=== PATIENT | female | born 1985 | race Caucasian/White ===

== ENCOUNTER 2018-08-24 00:02 | Inpatient (IN) ==
--- NOTE | 2018-08-24 00:28 | Emergency Department Note ---
Disposition Clinical Impression: Acute psychosis Disposition: Still a Patient Condition: Good Referrals: NONE,PCP [Primary Care Provider] - Forms: ED Satisfaction Letter Psych HPI - General Chief Complaint: ED Psychiatric Symptoms Stated Complaint: psych Time Seen by Provider: 08/24/18 00:09 Source: patient, EMS Mode of arrival: EMS Limitations: no limitations Nursing Notes Reviewed: Yes Vital Signs Reviewed: Yes - History of Present Illness HPI Narrative: 33-year-old female has the emergency department complaining of having psychotic thoughts. Patient does have history of schizophrenia. She says she does not take medications as be from [facility] helps her. 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 She does have chronic back pain otherwise has no other complaints. She has no shortness of breath chest pain. Patient has no suicidal or homicidal ideations. She does not have access to weapons. She currently is not taking any other medications other than marijuana to help calm her down. - Related Data Allergies Allergy/AdvReac Type Severity Reaction Status Date / Time No Known Allergies Allergy Verified 08/24/18 00:24 All systems ED: reviewed and negative except as stated. Review of Systems: As Per HPI Constitutional: Denies: fever, chills, weakness, weight change Eyes: Denies: eye pain, eye discharge, vision change ENT ED: Denies: ear pain, throat pain, dental pain, hearing loss, epistaxis, congestion, dysphagia Cardiovascular: Denies: chest pain, palpitations, dyspnea on exertion, edema, syncope Respiratory: Denies: cough, dyspnea, wheezes, hemoptysis, stridor Gastrointestinal: Denies: abdominal pain, nausea, vomiting, diarrhea, constipation, hematemesis, melena, hematochezia Genitourinary: Denies: dysuria, frequency, hematuria, discharge Musculoskeletal: Denies: back pain, neck pain, arthralgia, myalgia Integumentary: Denies: rash, abrasion, lesions Neurological: Denies: headache, weakness, numbness, paresthesias, confusion, abnormal gait, vertigo Psychiatric: Denies: anxiety, depression, suicidal thoughts, homicidal thoughts , auditory hallucinations, visual hallucinations Endocrine: Denies: fatigue Hematological/Lymphatic: Denies: easy bleeding, easy bruising Allergic/Immunologic: Denies: facial swelling, urticaria Past Medical History - Past Medical History Attestation: Yes The following information was validated with the patient. Source: patient Medical history: Reports: non-contributory, hypertension Psychiatric history: Reports: panic disorder - Social History Smoking Status: Current every day smoker Alcohol use: Reports: occasionally Drug use: Reports: marijuana Physical Exam - General Limitations: no limitations, other General appearance: alert - Head Head exam: atraumatic, normocephalic, normal inspection - Eye Eye exam: Present: normal appearance, PERRL, EOMI - ENT ENT exam: normal exam, normal oropharynx, mucous membranes moist - Neck Neck exam: Present: normal inspection, full ROM, trachea midline - Chest Chest inspection: Present: normal inspection, symmetric chest wall rise - Respiratory Respiratory exam: Present: normal lung sounds bilaterally - Cardiovascular Cardiovascular exam: Present: regular rate, normal rhythm, normal heart sounds - Abdominal Exam Abdominal exam: Present: soft, Non-Tender, normal bowel sounds. Absent: tenderness, distention, guarding, rebound, rigidity - Extremities Exam Extremities exam: Present: normal inspection - Back Exam Back exam: Present: normal inspection, full ROM. Absent: tenderness, CVA tenderness (R), CVA tenderness (L) - Neurological Exam Neurological exam: Present: alert, oriented X3 - Psychiatric Psychiatric exam: Present: anxious, manic. Absent: homicidal ideation, suicidal ideation - Skin Skin exam: Present: warm, dry, intact, normal color Course Course Narrative: We will do basic psychiatric medical evaluation clearance. Including CBC, BMP, urinalysis, urine drug screen, salicylates, acetaminophen. Patient's okay with this plan. Once cleared patient will be evaluated by psychiatry. - Reevaluation(s) Reevaluation #1: Patient attempted to elope patient was able to be cut by security before leaving. Patient stated that she does need to smoke so we will give patient a nicotine patch and give her 2 mg of oral Ativan to help with her nurse. She is pink slipped Time: 01:45 Vital Signs Temperature 98.8 F 08/24/18 00:10 Pulse Rate 115 08/24/18 00:10 Respiratory Rate 18 08/24/18 00:10 Blood Pressure 155/86 08/24/18 00:10 O2 Sat by Pulse Oximetry 98 08/24/18 00:10 Temperature 98.8 F 08/24/18 00:10 Pulse Rate 115 08/24/18 00:10 Respiratory Rate 18 08/24/18 00:10 Blood Pressure 155/86 08/24/18 00:10 O2 Sat by Pulse Oximetry 98 08/24/18 00:10 Oxygen Delivery Oxygen Delivery Room Air Psych - MDM Narrative Medical decision making narrative: Patient's labs came back within normal limits was positive for marijuana otherwise urine was normal and labs within normal limits. Patient is medically cleared we will contact psychiatry for consultation and evaluation await their recommendations. They went to see the patient but said patient was still too sedated so they will come back later in the morning to reevaluate the patient and make a plan. This patient is going to be signed out to the day team physicians who will await the recommendations from psychiatry - Lab Data Result diagrams: 08/24/18 00:37 08/24/18 00:37 Lab Results 08/24/18 08/24/18 08/24/18 Range/Units 00:35 00:35 00:35 WBC (4.3-11.1) K/mcL RBC (3.82-4.97) M/mcL Hgb (11.5-15.4) g/dL Hct (35.3-44.9) % MCV (83.0-100.0) fL MCH (28.0-33.3) pg MCHC (31.6-35.5) g/dL RDW (11.5-14.5) % Plt Count (140-400) K/mcL MPV (9.4-12.4) fL Immature Gran % (0-4) % Seg Neutrophils % % Lymphocytes % % Monocytes % % Eosinophils % % Basophils % % Neutrophils # (1.6-8.9) K/mcL Lymphocytes # (0.6-4.6) K/mcL Monocytes # (0.0-1.3) K/mcL Eosinophils # (0.0-0.6) K/mcL Basophils # (0.0-0.2) K/mcL Sodium (136-145) mEq/L Potassium (3.5-5.1) mEq/L Chloride (98-107) mEq/L Carbon Dioxide (23-29) mEq/L BUN (6-20) mg/dL Creatinine (0.60-1.20) mg/dL Est GFR ( Amer) (> 60) Est GFR (Non-Af Amer) (> 60) BUN/Creatinine Ratio (6-26) Glucose (70-105) mg/dL Calculated Osmolality (280-300) Calcium (8.6-10.3) mg/dL Urine Color Yellow (Yellow) Urine Clarity Clear (Clear) Urine pH 6.5 (5.0-8.0) pH Units Ur Specific [place] 1.008 L (1.010-1.025) Urine Protein Negative (Neg-Trace) mg/dL Urine Glucose (UA) Normal (Normal) mg/dL Urine Ketones Negative (Negative) mg/dL Urine Blood Negative (Negative) Urine Nitrite Negative (Negative) Urine Bilirubin Negative (Negative) Urine Urobilinogen Normal (Normal) mg/dL Ur Leukocyte Esterase Large H (Negative) Urine Microscopic RBC 3-5 H (0-3) per hpf Urine Microscopic WBC 5-15 H (0-3) per hpf Ur Squamous Epith Cells Many H (None-Few) per lpf Urine Bacteria Few (None-Few) per hpf Hyaline Casts None Seen (None-Few) per lpf Urine Test Negative (Negative) Salicylates (15.0-30.0) mg/dL Urine Opiates Screen Negative (Cjpuac=539) ng/mL Acetaminophen (10-20) mcg/mL Ur Barbiturates Screen Negative (Rlaviw=819) ng/mL Ur Phencyclidine Scrn Negative (Cutoff=25) ng/mL Ur Amphetamines Screen Negative (Qqywzt=0964) ng/mL U Benzodiazepines Scrn Negative (Ssejgn=152) ng/mL Urine Cocaine Screen Negative (Cutoff= 300) ng/mL U Marijuana (THC) Screen Positive H (Cutoff = 50) ng/mL Ur Drug Screen Interp See Below Ethyl Alcohol (Less than 10) mg/dL 08/24/18 08/24/18 Range/Units 00:37 00:37 WBC 11.4 H (4.3-11.1) K/mcL RBC 4.44 (3.82-4.97) M/mcL Hgb 13.1 (11.5-15.4) g/dL Hct 39.4 (35.3-44.9) % MCV 88.7 (83.0-100.0) fL MCH 29.5 (28.0-33.3) pg MCHC 33.2 (31.6-35.5) g/dL RDW 15.6 H (11.5-14.5) % Plt Count 368 (140-400) K/mcL MPV 9.3 L (9.4-12.4) fL Immature Gran % 0.4 (0-4) % Seg Neutrophils % 60.4 % Lymphocytes % 28.1 % Monocytes % 9.4 % Eosinophils % 1.1 % Basophils % 0.6 % Neutrophils # 6.9 (1.6-8.9) K/mcL Lymphocytes # 3.2 (0.6-4.6) K/mcL Monocytes # 1.1 (0.0-1.3) K/mcL Eosinophils # 0.1 (0.0-0.6) K/mcL Basophils # 0.1 (0.0-0.2) K/mcL Sodium 135 L (136-145) mEq/L Potassium 3.6 (3.5-5.1) mEq/L Chloride 100 (98-107) mEq/L Carbon Dioxide 28 (23-29) mEq/L BUN 14 (6-20) mg/dL Creatinine 0.75 (0.60-1.20) mg/dL Est GFR ( Amer) > 60 (> 60) Est GFR (Non-Af Amer) > 60 (> 60) BUN/Creatinine Ratio 19 (6-26) Glucose 102 (70-105) mg/dL Calculated Osmolality 281 (280-300) Calcium 9.9 (8.6-10.3) mg/dL Urine Color (Yellow) Urine Clarity (Clear) Urine pH (5.0-8.0) pH Units Ur Specific [place] (1.010-1.025) Urine Protein (Neg-Trace) mg/dL Urine Glucose (UA) (Normal) mg/dL Urine Ketones (Negative) mg/dL Urine Blood (Negative) Urine Nitrite (Negative) Urine Bilirubin (Negative) Urine Urobilinogen (Normal) mg/dL Ur Leukocyte Esterase (Negative) Urine Microscopic RBC (0-3) per hpf Urine Microscopic WBC (0-3) per hpf Ur Squamous Epith Cells (None-Few) per lpf Urine Bacteria (None-Few) per hpf Hyaline Casts (None-Few) per lpf Urine Test (Negative) Salicylates 3.3 L (15.0-30.0) mg/dL Urine Opiates Screen (Rbprey=523) ng/mL Acetaminophen < 10 L (10-20) mcg/mL Ur Barbiturates Screen (Zcgnwx=522) ng/mL Ur Phencyclidine Scrn (Cutoff=25) ng/mL Ur Amphetamines Screen (Beuweq=3833) ng/mL U Benzodiazepines Scrn (Ticddk=722) ng/mL Urine Cocaine Screen (Cutoff= 300) ng/mL U Marijuana (THC) Screen (Cutoff = 50) ng/mL Ur Drug Screen Interp Ethyl Alcohol < 10 (Less than 10) mg/dL Psychiatric Medical Clearance - Medical Clearance Checklist Medical History: No Social History Section defined Current Vitals: Last Vital Signs Temp 98.8 F 08/24/18 00:10 Pulse 115 08/24/18 00:10 Resp 18 08/24/18 00:10 BP 155/86 08/24/18 00:10 Pulse Ox 98 08/24/18 00:10 Psychiatric Lab Panel: Drug Levels and Toxicity 08/24/18 08/24/18 00:35 00:37 Urine Opiates Screen Negative Acetaminophen < 10 L Ur Barbiturates Screen Negative Ur Phencyclidine Scrn Negative Ur Amphetamines Screen Negative U Benzodiazepines Scrn Negative Urine Cocaine Screen Negative U Marijuana (THC) Screen Positive H Ethyl Alcohol < 10 Abnormal Labs: Abnormal lab results WBC 11.4 K/mcL (4.3-11.1) H 08/24/18 00:37 RDW 15.6 % (11.5-14.5) H 08/24/18 00:37 MPV 9.3 fL (9.4-12.4) L 08/24/18 00:37 Sodium 135 mEq/L (136-145) L 08/24/18 00:37 Ur Specific [place] 1.008 (1.010-1.025) L 08/24/18 00:35 Ur Leukocyte Esterase Large (Negative) H 08/24/18 00:35 Urine Microscopic RBC 3-5 per hpf (0-3) H 08/24/18 00:35 Urine Microscopic WBC 5-15 per hpf (0-3) H 08/24/18 00:35 Ur Squamous Epith Cells Many per lpf (None-Few) H 08/24/18 00:35 Salicylates 3.3 mg/dL (15.0-30.0) L 08/24/18 00:37 Acetaminophen < 10 mcg/mL (10-20) L 08/24/18 00:37 U Marijuana (THC) Screen Positive ng/mL (Cutoff = 50) H 08/24/18 00:35 Statement of Medical Clearance: I have evaluated the patient, reviewed diagnostic information, and certify that the patient's medical condition is sufficiently stable that transfer to the psychiatric unit does not pose a significant risk of deterioration.
[2018-08-24 00:45] LABS: Bilirubin,Urine Negative (Negative); Blood,Urine Negative (Negative); Clarity,Urine Clear (Clear); Color,Urine Yellow (Yellow); Glucose,Urine (UA) Normal (Normal); Ketones,Urine Negative (Negative); Leukocyte Esterase,Urine Large (Negative); Nitrite,Urine Negative (Negative); PH,Urine 6.5 pH Units (5.0-8.0); Protein,Urine Negative (Neg-Trace); Specific Gravity,Urine 1.008 (1.010-1.025); Urobilinogen,Urine Normal (Normal)
[2018-08-24 00:46] LABS: Bacteria,Urine Few per hpf (None-Few); Hyaline Casts,Urine None Seen per lpf (None-Few); Squamous Epithelial Cell,Urine Many per lpf (None-Few)
[2018-08-24 00:48] LABS: Basophils # 0.1 K/mcL (0.0-0.2); Basophils % 0.6 %; Eosinophils # 0.1 K/mcL (0.0-0.6); Eosinophils % 1.1 %; Hematocrit 39.4 % (35.3-44.9); Hemoglobin 13.1 g/dL (11.5-15.4); Immature Granulocytes % 0.4 % (0-4); Lymphocytes # 3.2 K/mcL (0.6-4.6); Lymphocytes % 28.1 %; Mean Corpuscular HGB Conc 33.2 g/dL (31.6-35.5); Mean Corpuscular Hemoglobin 29.5 pg (28.0-33.3); Mean Corpuscular Volume 88.7 fL (83.0-100.0); Mean Platelet Volume 9.3 fL (9.4-12.4); Monocytes # 1.1 K/mcL (0.0-1.3); Monocytes % 9.4 %; Neutrophils # 6.9 K/mcL (1.6-8.9); Platelet Count 368 K/mcL (140-400); Red Blood Count 4.44 M/mcL (3.82-4.97); Red Cell Distribution Width 15.6 % (11.5-14.5); Segmented Neutrophils % 60.4 %
[2018-08-24] MEDS: Ziprasidone 20 MG CAPSULE PO SCH ×2 (00:56→09:15)
[2018-08-24 01:05] LABS: Amphetamine Screen,Urine Negative ng/mL (Cutoff=1000); Barbiturate Screen,Urine Negative ng/mL (Cutoff=200); Benzodiazepines Screen,Urine Negative ng/mL (Cutoff=200); Cannabinoid Screen,Urine Positive ng/mL (Cutoff = 50); Cocaine Screen,Urine Negative ng/mL (Cutoff= 300); Opiate Screen,Urine Negative ng/mL (Cutoff=300); Phencyclidine Screen,Urine Negative ng/mL (Cutoff=25)
[2018-08-24 01:07] LABS: Acetaminophen < 10 mcg/mL (10-20); BUN/Creatinine Ratio 19 (6-26); Blood Urea Nitrogen 14 mg/dL (6-20); Calcium 9.9 mg/dL (8.6-10.3); Carbon Dioxide 28 mEq/L (23-29); Chloride 100 mEq/L (98-107); Ethanol < 10 mg/dL (Less than 10); Glucose 102 mg/dL (70-105); Osmolality,Calculated 281 (280-300); Potassium 3.6 mEq/L (3.5-5.1); Salicylate 3.3 mg/dL (15.0-30.0); Sodium 135 mEq/L (136-145); eGFR For Non-African Americans > 60 (> 60)
[2018-08-24] MEDS ORDERED: *HR* LORazepam 1 MG TABLET PO ONE ×3 (01:44→14:16)
[2018-08-24] MEDS ORDERED: Nicotine 21 MG PATCH.TD24 TD ONE (01:45)
--- NOTE | 2018-08-24 06:35 | Emergency Department Note ---
Disposition Clinical Impression: Acute psychosis Disposition: Still a Patient Condition: Good Referrals: NONE,PCP [Primary Care Provider] - Forms: ED Satisfaction Letter General Adult HPI - General Chief complaint: ED Psychiatric Symptoms Stated complaint: psych Time Seen by Provider: 08/24/18 00:09 Source: patient, EMS Mode of arrival: EMS Limitations: no limitations, other - History of Present Illness HPI Narrative: ED ATTESTATION NOTE: I examined this patient and my medical decision-making was reviewed with the Resident Physician/MIDDLEWARE ADMINISTRATOR/PA/Student. I have personally performed a face to face evaluation on this patient & I agree with the documented findings, disposition and treatment plan as described except to the extent set forth below. Patient was seen with emergency medicine resident Hola Lindo please see copy of his note for details of this encounter Briefly: 33 year old female comes in floridly psychotic with history of mental health disorder. Patient was chemically sedated and mental health services here was unable to evaluate. Patient is pink slip. Patient will be signed out to the oncoming ED attending Dr. CAL HERNANDEZ at 7 AM. She will reevaluate the patient and have mental health evaluate Pain Scale: 5 - Related Data Allergies Allergy/AdvReac Type Severity Reaction Status Date / Time No Known Allergies Allergy Verified 08/24/18 00:24 Constitutional: Denies: fever, chills, weakness, weight change Eyes: Denies: eye pain, eye discharge, vision change ENT ED: Denies: ear pain, throat pain, dental pain, hearing loss, epistaxis, congestion, dysphagia Cardiovascular: Denies: chest pain, palpitations, dyspnea on exertion, edema, syncope Respiratory: Denies: cough, dyspnea, wheezes, hemoptysis, stridor Gastrointestinal: Denies: abdominal pain, nausea, vomiting, diarrhea, constipation, hematemesis, melena, hematochezia Genitourinary: Denies: dysuria, frequency, hematuria, discharge Musculoskeletal: Denies: back pain, neck pain, arthralgia, myalgia Integumentary: Denies: rash, abrasion, lesions Neurological: Denies: headache, weakness, numbness, paresthesias, confusion, abnormal gait, vertigo Psychiatric: Denies: anxiety, depression, suicidal thoughts, homicidal thoughts , auditory hallucinations, visual hallucinations Endocrine: Denies: fatigue Hematological/Lymphatic: Denies: easy bleeding, easy bruising Allergic/Immunologic: Denies: facial swelling, urticaria Past Medical History - Past Medical History Medical history: Reports: non-contributory, hypertension Psychiatric history: Reports: panic disorder - Social History Smoking Status: Current every day smoker Alcohol use: Reports: occasionally Drug use: Reports: marijuana Physical Exam - General Limitations: no limitations, other General appearance: alert Course Vital Signs Temperature 98.8 F 08/24/18 00:10 Pulse Rate 115 08/24/18 00:10 Respiratory Rate 18 08/24/18 00:10 Blood Pressure 155/86 08/24/18 00:10 O2 Sat by Pulse Oximetry 98 08/24/18 00:10 Temperature 98.8 F 08/24/18 00:10 Pulse Rate 115 08/24/18 00:10 Respiratory Rate 18 08/24/18 00:10 Blood Pressure 155/86 08/24/18 00:10 O2 Sat by Pulse Oximetry 98 08/24/18 00:10 Oxygen Delivery Oxygen Delivery Room Air Medical Decision Making - Lab Data Result diagrams: 08/24/18 00:37 08/24/18 00:37 Lab Results 08/24/18 08/24/18 08/24/18 Range/Units 00:35 00:35 00:35 WBC (4.3-11.1) K/mcL RBC (3.82-4.97) M/mcL Hgb (11.5-15.4) g/dL Hct (35.3-44.9) % MCV (83.0-100.0) fL MCH (28.0-33.3) pg MCHC (31.6-35.5) g/dL RDW (11.5-14.5) % Plt Count (140-400) K/mcL MPV (9.4-12.4) fL Immature Gran % (0-4) % Seg Neutrophils % % Lymphocytes % % Monocytes % % Eosinophils % % Basophils % % Neutrophils # (1.6-8.9) K/mcL Lymphocytes # (0.6-4.6) K/mcL Monocytes # (0.0-1.3) K/mcL Eosinophils # (0.0-0.6) K/mcL Basophils # (0.0-0.2) K/mcL Sodium (136-145) mEq/L Potassium (3.5-5.1) mEq/L Chloride (98-107) mEq/L Carbon Dioxide (23-29) mEq/L BUN (6-20) mg/dL Creatinine (0.60-1.20) mg/dL Est GFR ( Amer) (> 60) Est GFR (Non-Af Amer) (> 60) BUN/Creatinine Ratio (6-26) Glucose (70-105) mg/dL Calculated Osmolality (280-300) Calcium (8.6-10.3) mg/dL Urine Color Yellow (Yellow) Urine Clarity Clear (Clear) Urine pH 6.5 (5.0-8.0) pH Units Ur Specific [place] 1.008 L (1.010-1.025) Urine Protein Negative (Neg-Trace) mg/dL Urine Glucose (UA) Normal (Normal) mg/dL Urine Ketones Negative (Negative) mg/dL Urine Blood Negative (Negative) Urine Nitrite Negative (Negative) Urine Bilirubin Negative (Negative) Urine Urobilinogen Normal (Normal) mg/dL Ur Leukocyte Esterase Large H (Negative) Urine Microscopic RBC 3-5 H (0-3) per hpf Urine Microscopic WBC 5-15 H (0-3) per hpf Ur Squamous Epith Cells Many H (None-Few) per lpf Urine Bacteria Few (None-Few) per hpf Hyaline Casts None Seen (None-Few) per lpf Urine Test Negative (Negative) Salicylates (15.0-30.0) mg/dL Urine Opiates Screen Negative (Vmlmzy=334) ng/mL Acetaminophen (10-20) mcg/mL Ur Barbiturates Screen Negative (Lesqxq=949) ng/mL Ur Phencyclidine Scrn Negative (Cutoff=25) ng/mL Ur Amphetamines Screen Negative (Etyobs=7555) ng/mL U Benzodiazepines Scrn Negative (Ccsgtu=917) ng/mL Urine Cocaine Screen Negative (Cutoff= 300) ng/mL U Marijuana (THC) Screen Positive H (Cutoff = 50) ng/mL Ur Drug Screen Interp See Below Ethyl Alcohol (Less than 10) mg/dL 08/24/18 08/24/18 Range/Units 00:37 00:37 WBC 11.4 H (4.3-11.1) K/mcL RBC 4.44 (3.82-4.97) M/mcL Hgb 13.1 (11.5-15.4) g/dL Hct 39.4 (35.3-44.9) % MCV 88.7 (83.0-100.0) fL MCH 29.5 (28.0-33.3) pg MCHC 33.2 (31.6-35.5) g/dL RDW 15.6 H (11.5-14.5) % Plt Count 368 (140-400) K/mcL MPV 9.3 L (9.4-12.4) fL Immature Gran % 0.4 (0-4) % Seg Neutrophils % 60.4 % Lymphocytes % 28.1 % Monocytes % 9.4 % Eosinophils % 1.1 % Basophils % 0.6 % Neutrophils # 6.9 (1.6-8.9) K/mcL Lymphocytes # 3.2 (0.6-4.6) K/mcL Monocytes # 1.1 (0.0-1.3) K/mcL Eosinophils # 0.1 (0.0-0.6) K/mcL Basophils # 0.1 (0.0-0.2) K/mcL Sodium 135 L (136-145) mEq/L Potassium 3.6 (3.5-5.1) mEq/L Chloride 100 (98-107) mEq/L Carbon Dioxide 28 (23-29) mEq/L BUN 14 (6-20) mg/dL Creatinine 0.75 (0.60-1.20) mg/dL Est GFR ( Amer) > 60 (> 60) Est GFR (Non-Af Amer) > 60 (> 60) BUN/Creatinine Ratio 19 (6-26) Glucose 102 (70-105) mg/dL Calculated Osmolality 281 (280-300) Calcium 9.9 (8.6-10.3) mg/dL Urine Color (Yellow) Urine Clarity (Clear) Urine pH (5.0-8.0) pH Units Ur Specific [place] (1.010-1.025) Urine Protein (Neg-Trace) mg/dL Urine Glucose (UA) (Normal) mg/dL Urine Ketones (Negative) mg/dL Urine Blood (Negative) Urine Nitrite (Negative) Urine Bilirubin (Negative) Urine Urobilinogen (Normal) mg/dL Ur Leukocyte Esterase (Negative) Urine Microscopic RBC (0-3) per hpf Urine Microscopic WBC (0-3) per hpf Ur Squamous Epith Cells (None-Few) per lpf Urine Bacteria (None-Few) per hpf Hyaline Casts (None-Few) per lpf Urine Test (Negative) Salicylates 3.3 L (15.0-30.0) mg/dL Urine Opiates Screen (Mmixvl=990) ng/mL Acetaminophen < 10 L (10-20) mcg/mL Ur Barbiturates Screen (Dxcdvx=762) ng/mL Ur Phencyclidine Scrn (Cutoff=25) ng/mL Ur Amphetamines Screen (Tvxqxm=5389) ng/mL U Benzodiazepines Scrn (Osqndc=014) ng/mL Urine Cocaine Screen (Cutoff= 300) ng/mL U Marijuana (THC) Screen (Cutoff = 50) ng/mL Ur Drug Screen Interp Ethyl Alcohol < 10 (Less than 10) mg/dL
--- NOTE | 2018-08-24 07:16 | Emergency Department Note ---
Disposition Clinical Impression: Acute psychosis Disposition: Still a Patient Condition: Good Referrals: NONE,PCP [Primary Care Provider] - Forms: ED Satisfaction Letter General Adult HPI - General Chief complaint: ED Psychiatric Symptoms Stated complaint: psych Time Seen by Provider: 08/24/18 00:09 Source: patient, EMS Mode of arrival: EMS Limitations: no limitations, other - History of Present Illness Pain Scale: 5 - Related Data Allergies Allergy/AdvReac Type Severity Reaction Status Date / Time No Known Allergies Allergy Verified 08/24/18 00:24 Constitutional: Denies: fever, chills, weakness, weight change Eyes: Denies: eye pain, eye discharge, vision change ENT ED: Denies: ear pain, throat pain, dental pain, hearing loss, epistaxis, congestion, dysphagia Cardiovascular: Denies: chest pain, palpitations, dyspnea on exertion, edema, syncope Respiratory: Denies: cough, dyspnea, wheezes, hemoptysis, stridor Gastrointestinal: Denies: abdominal pain, nausea, vomiting, diarrhea, constipation, hematemesis, melena, hematochezia Genitourinary: Denies: dysuria, frequency, hematuria, discharge Musculoskeletal: Denies: back pain, neck pain, arthralgia, myalgia Integumentary: Denies: rash, abrasion, lesions Neurological: Denies: headache, weakness, numbness, paresthesias, confusion, abnormal gait, vertigo Psychiatric: Denies: anxiety, depression, suicidal thoughts, homicidal thoughts , auditory hallucinations, visual hallucinations Endocrine: Denies: fatigue Hematological/Lymphatic: Denies: easy bleeding, easy bruising Allergic/Immunologic: Denies: facial swelling, urticaria Past Medical History - Past Medical History Medical history: Reports: non-contributory, hypertension Psychiatric history: Reports: panic disorder - Social History Smoking Status: Current every day smoker Alcohol use: Reports: occasionally Drug use: Reports: marijuana Physical Exam - General Limitations: no limitations, other General appearance: alert Course Course Narrative: accepted sign out from Dr. Garcia. Patinet has been medically cleared although has been medicated and 1A has attempted to evaluate although not successful due to drowsiness but easily arousable. We will continue to monitor and 1A will return for re-eval. Vital Signs Temperature 98.8 F 08/24/18 00:10 Pulse Rate 115 08/24/18 00:10 Respiratory Rate 18 08/24/18 00:10 Blood Pressure 155/86 08/24/18 00:10 O2 Sat by Pulse Oximetry 98 08/24/18 00:10 Temperature 98.8 F 08/24/18 00:10 Pulse Rate 115 08/24/18 00:10 Respiratory Rate 18 08/24/18 00:10 Blood Pressure 155/86 08/24/18 00:10 O2 Sat by Pulse Oximetry 98 08/24/18 00:10 Oxygen Delivery Oxygen Delivery Room Air Medical Decision Making - Lab Data Result diagrams: 08/24/18 00:37 08/24/18 00:37 Lab Results 08/24/18 08/24/18 08/24/18 Range/Units 00:35 00:35 00:35 WBC (4.3-11.1) K/mcL RBC (3.82-4.97) M/mcL Hgb (11.5-15.4) g/dL Hct (35.3-44.9) % MCV (83.0-100.0) fL MCH (28.0-33.3) pg MCHC (31.6-35.5) g/dL RDW (11.5-14.5) % Plt Count (140-400) K/mcL MPV (9.4-12.4) fL Immature Gran % (0-4) % Seg Neutrophils % % Lymphocytes % % Monocytes % % Eosinophils % % Basophils % % Neutrophils # (1.6-8.9) K/mcL Lymphocytes # (0.6-4.6) K/mcL Monocytes # (0.0-1.3) K/mcL Eosinophils # (0.0-0.6) K/mcL Basophils # (0.0-0.2) K/mcL Sodium (136-145) mEq/L Potassium (3.5-5.1) mEq/L Chloride (98-107) mEq/L Carbon Dioxide (23-29) mEq/L BUN (6-20) mg/dL Creatinine (0.60-1.20) mg/dL Est GFR ( Amer) (> 60) Est GFR (Non-Af Amer) (> 60) BUN/Creatinine Ratio (6-26) Glucose (70-105) mg/dL Calculated Osmolality (280-300) Calcium (8.6-10.3) mg/dL Urine Color Yellow (Yellow) Urine Clarity Clear (Clear) Urine pH 6.5 (5.0-8.0) pH Units Ur Specific [place] 1.008 L (1.010-1.025) Urine Protein Negative (Neg-Trace) mg/dL Urine Glucose (UA) Normal (Normal) mg/dL Urine Ketones Negative (Negative) mg/dL Urine Blood Negative (Negative) Urine Nitrite Negative (Negative) Urine Bilirubin Negative (Negative) Urine Urobilinogen Normal (Normal) mg/dL Ur Leukocyte Esterase Large H (Negative) Urine Microscopic RBC 3-5 H (0-3) per hpf Urine Microscopic WBC 5-15 H (0-3) per hpf Ur Squamous Epith Cells Many H (None-Few) per lpf Urine Bacteria Few (None-Few) per hpf Hyaline Casts None Seen (None-Few) per lpf Urine Test Negative (Negative) Salicylates (15.0-30.0) mg/dL Urine Opiates Screen Negative (Gflkyx=904) ng/mL Acetaminophen (10-20) mcg/mL Ur Barbiturates Screen Negative (Folazt=746) ng/mL Ur Phencyclidine Scrn Negative (Cutoff=25) ng/mL Ur Amphetamines Screen Negative (Ndpwab=0792) ng/mL U Benzodiazepines Scrn Negative (Qlfbye=916) ng/mL Urine Cocaine Screen Negative (Cutoff= 300) ng/mL U Marijuana (THC) Screen Positive H (Cutoff = 50) ng/mL Ur Drug Screen Interp See Below Ethyl Alcohol (Less than 10) mg/dL 08/24/18 08/24/18 Range/Units 00:37 00:37 WBC 11.4 H (4.3-11.1) K/mcL RBC 4.44 (3.82-4.97) M/mcL Hgb 13.1 (11.5-15.4) g/dL Hct 39.4 (35.3-44.9) % MCV 88.7 (83.0-100.0) fL MCH 29.5 (28.0-33.3) pg MCHC 33.2 (31.6-35.5) g/dL RDW 15.6 H (11.5-14.5) % Plt Count 368 (140-400) K/mcL MPV 9.3 L (9.4-12.4) fL Immature Gran % 0.4 (0-4) % Seg Neutrophils % 60.4 % Lymphocytes % 28.1 % Monocytes % 9.4 % Eosinophils % 1.1 % Basophils % 0.6 % Neutrophils # 6.9 (1.6-8.9) K/mcL Lymphocytes # 3.2 (0.6-4.6) K/mcL Monocytes # 1.1 (0.0-1.3) K/mcL Eosinophils # 0.1 (0.0-0.6) K/mcL Basophils # 0.1 (0.0-0.2) K/mcL Sodium 135 L (136-145) mEq/L Potassium 3.6 (3.5-5.1) mEq/L Chloride 100 (98-107) mEq/L Carbon Dioxide 28 (23-29) mEq/L BUN 14 (6-20) mg/dL Creatinine 0.75 (0.60-1.20) mg/dL Est GFR ( Amer) > 60 (> 60) Est GFR (Non-Af Amer) > 60 (> 60) BUN/Creatinine Ratio 19 (6-26) Glucose 102 (70-105) mg/dL Calculated Osmolality 281 (280-300) Calcium 9.9 (8.6-10.3) mg/dL Urine Color (Yellow) Urine Clarity (Clear) Urine pH (5.0-8.0) pH Units Ur Specific [place] (1.010-1.025) Urine Protein (Neg-Trace) mg/dL Urine Glucose (UA) (Normal) mg/dL Urine Ketones (Negative) mg/dL Urine Blood (Negative) Urine Nitrite (Negative) Urine Bilirubin (Negative) Urine Urobilinogen (Normal) mg/dL Ur Leukocyte Esterase (Negative) Urine Microscopic RBC (0-3) per hpf Urine Microscopic WBC (0-3) per hpf Ur Squamous Epith Cells (None-Few) per lpf Urine Bacteria (None-Few) per hpf Hyaline Casts (None-Few) per lpf Urine Test (Negative) Salicylates 3.3 L (15.0-30.0) mg/dL Urine Opiates Screen (Kawfuy=707) ng/mL Acetaminophen < 10 L (10-20) mcg/mL Ur Barbiturates Screen (Gbczna=543) ng/mL Ur Phencyclidine Scrn (Cutoff=25) ng/mL Ur Amphetamines Screen (Uunwhw=1343) ng/mL U Benzodiazepines Scrn (Gwsysj=688) ng/mL Urine Cocaine Screen (Cutoff= 300) ng/mL U Marijuana (THC) Screen (Cutoff = 50) ng/mL Ur Drug Screen Interp Ethyl Alcohol < 10 (Less than 10) mg/dL
[2018-08-24] MEDS ORDERED: Haloperidol Oral Conc 10 MG/5 ML UDC PO ONE (12:36)
[2018-08-24] MEDS ORDERED: Ziprasidone 20 MG CAPSULE PO STA (14:16)
[2018-08-24] MEDS ORDERED: Ziprasidone 20 MG CAPSULE PO PRN (16:11)
[2018-08-25] MEDS: hydrOXYzine pamoate 25 MG CAPSULE PO PRN ×2 (09:01→20:09)
[2018-08-25] MEDS: Ibuprofen 400 MG TABLET PO PRN ×3 (09:01→20:08)
--- NOTE | 2018-08-25 09:46 | Psychiatry History & Physical ---
Date of Encounter: 08/25/18 Time of Encounter: 09:15 History of Present Illness Patient Stated Chief Complaint: i need guitar , i need to learn to lay guitar. Medicare Admission Attestation: For traditional Medicare patients the provided hospital inpatient services are reasonable and necessary and in the case of services not specified as inpatient -only under 42 CFR 419.22 (n), that they are appropriately provided as inpatient services in accordance 42 CFR 412.3. For Critical Access Hospital the patient may reasonably be expected to be discharged or transferred to a hospital within 96 hours after admission to the Critical Access Hospital. Admitted From: Emergency Dept Plans for Post Hospital Care: Home History of Present Illness: Ms. Rosa is a 33 year old female was admitted from ED. CC: i am beauty and i wish who is proposing me. HPI : Patient evaluated today , she is 33 year old SWF lives with her mother , states i am now homeless,[place] law showed up and they bought me here, she has h /o Bipolar and schizophrenia and anxiety and PTSD as per her. she has been non compliant with medications states because was using methamphetamines and heroin ," i am done with that shit" She has to be redirected several times to give history as has circumstantial and tangential thought process, she is grandiose and is labile, states i need nerve pills , she is very anxious and restless , she is paranoid and agitated at times , she is having grandiose delusions, like she is beauty and she s the rod to the end of the world and is the rod to save it. she she also admits to auditory and visual hallucinations and seeing spirits, she is very labile , i want to forgive hu he is in retirement , he killed my brother , i am the only one who can save his life, she is picking her face states i am nervous , i can blow up now, she denies suicidal/homicidal ideation. patient gives h/o manic episode in past she at present in manic states and is danger to self /others as poor judgement and insight. Past Psychiatric History : h/o Bipolar and michelle , schizophrenia , ptsd and anxiety , substance use disorder , she has had no treatment in years , as using drugs , has been iv user of methamphetamine , states none in 2 months , no heroin for few months as was on suboxone at [facility] but has not used in 7 days. family h/o bipolar/substance use . Medical h/o : does not know , h/o asthma, denies STD , denies HIV , states i might have hepatitis . , Lmp none as has IUD . Social hx: homeless, legal denies now in past had been in trouble, education , HS and as per her 4 college degrees. At present patient is manic with psychosis , poor judgement and insight , will benefit inpatient stabilization and start medications and unit milieu. plan d/w patient , she is agreeing to be started on medications. Past Med Surg Social Fam HX - Past Medical History Medical history: non-contributory, hypertension - Social History Smoking Status: Current every day smoker Alcohol use: occasionally Drug use: marijuana Medications & Allergies Albuterol Sulfate [Ventolin Hfa] 2 puff IH Q4H PRN 08/24/18 [History] 3 Allergy/AdvReac Type Severity Reaction Status Date / Time No Known Allergies Allergy Verified 08/24/18 00:24 Review of Systems Constitutional: Denies: fever, chills, weakness, weight change Eyes: Denies: eye pain, vision change Ears, Nose, Throat: Denies: ear pain, throat pain, dental pain, hearing loss, congestion Cardiovascular: Denies: chest pain, palpitations, dyspnea on exertion Respiratory: Denies: cough, dyspnea, wheezes Gastrointestinal: Denies: abdominal pain, nausea, vomiting, diarrhea, constipation Genitourinary female: Denies: urgency, dysuria, frequency, abnormal menses, dyspareunia Musculoskeletal: Denies: joint swelling, joint pain Integumentary: Denies: rash, lesions, pruritus Neurological: Denies: headache, weakness, numbness, memory loss Psychiatric: Reports: depression, anxiety, abnormal sleep pattern, change in appetite, auditory hallucinations, visual hallucinations, difficulty concentrating, irritability, mood swings, panic attacks Endocrine: Denies: fatigue, heat or cold intolerance Hematologic/Lymphatic: Denies: easy bruising, lymphadenopathy Allergic/Immunologic: Denies: urticaria, itchy eyes Exam - HEENT Head exam IM: Present: atraumatic Eye exam IM: Present: EOMI, normal appearance, PERRL ENT exam IM: Present: normal exam - Neurological Neurological exam: Present: CN II-XII intact, alert - Respiratory Respiratory exam IM: Present: CTAB - GI/Abdominal GI/Abdominal exam IM: Present: normal bowel sounds, soft. Absent: tenderness - Extremities Extremities exam IM: Present: full ROM - Skin Skin exam IM: Present: dry - Constitutional Vitals: Temp Pulse Resp BP Pulse Ox 97.8 F 79 18 107/68 98 08/24/18 20:57 08/24/18 20:57 08/24/18 20:57 08/24/18 20:57 08/24/18 00:10 General appearance: unkempt, average - Musculoskeletal Gait: normal Station: other Strength & Tone: normal for patient - Psychiatric Patient Orientation: Yes Person, Yes Time, Yes Place Level of alertness: Alert Behavior: nervous, anxious, agitated, uncooperative, distractible Psychomotor activity: Increased Eye Contact: Minimal Contact Mood Description: Angry, Anxious, Labile Affect description: labile Speech Volume: Loud Speech pattern: pressured Language & Vocabulary: limited Thought Process: Circumstantial, Tangential Thought Content: Yes Paranoid delusion, Yes Grandiose delusion Perceptual Disturbances: Yes Auditory hallucinations, Yes Visual hallucinations Attention Span Ability: Capable of Focused Attention, Unable to Sustain Attention Memory Description: Grossly Intact Patient Reliability: Not Reliable Historian Fund of knowledge: Yes average Intelligence Estimate: Average Judgment: Poor Insight: Minimal Results - Labs Labs: Laboratory Last Values WBC 11.4 K/mcL (4.3-11.1) H 08/24/18 00:37 RBC 4.44 M/mcL (3.82-4.97) 08/24/18 00:37 Hgb 13.1 g/dL (11.5-15.4) 08/24/18 00:37 Hct 39.4 % (35.3-44.9) 08/24/18 00:37 MCV 88.7 fL (83.0-100.0) 08/24/18 00:37 MCH 29.5 pg (28.0-33.3) 08/24/18 00:37 MCHC 33.2 g/dL (31.6-35.5) 08/24/18 00:37 RDW 15.6 % (11.5-14.5) H 08/24/18 00:37 Plt Count 368 K/mcL (140-400) 08/24/18 00:37 MPV 9.3 fL (9.4-12.4) L 08/24/18 00:37 Immature Gran % 0.4 % (0-4) 08/24/18 00:37 Seg Neutrophils % 60.4 % 08/24/18 00:37 Lymphocytes % 28.1 % 08/24/18 00:37 Monocytes % 9.4 % 08/24/18 00:37 Eosinophils % 1.1 % 08/24/18 00:37 Basophils % 0.6 % 08/24/18 00:37 Neutrophils # 6.9 K/mcL (1.6-8.9) 08/24/18 00:37 Lymphocytes # 3.2 K/mcL (0.6-4.6) 08/24/18 00:37 Monocytes # 1.1 K/mcL (0.0-1.3) 08/24/18 00:37 Eosinophils # 0.1 K/mcL (0.0-0.6) 08/24/18 00:37 Basophils # 0.1 K/mcL (0.0-0.2) 08/24/18 00:37 Sodium 135 mEq/L (136-145) L 08/24/18 00:37 Potassium 3.6 mEq/L (3.5-5.1) 08/24/18 00:37 Chloride 100 mEq/L (98-107) 08/24/18 00:37 Carbon Dioxide 28 mEq/L (23-29) 08/24/18 00:37 BUN 14 mg/dL (6-20) 08/24/18 00:37 Creatinine 0.75 mg/dL (0.60-1.20) 08/24/18 00:37 Est GFR ( Amer) > 60 (> 60) 08/24/18 00:37 Est GFR (Non-Af Amer) > 60 (> 60) 08/24/18 00:37 BUN/Creatinine Ratio 19 (6-26) 08/24/18 00:37 Glucose 102 mg/dL (70-105) 08/24/18 00:37 Calculated Osmolality 281 (280-300) 08/24/18 00:37 Calcium 9.9 mg/dL (8.6-10.3) 08/24/18 00:37 Urine Color Yellow (Yellow) 08/24/18 00:35 Urine Clarity Clear (Clear) 08/24/18 00:35 Urine pH 6.5 pH Units (5.0-8.0) 08/24/18 00:35 Ur Specific [place] 1.008 (1.010-1.025) L 08/24/18 00:35 Urine Protein Negative mg/dL (Neg-Trace) 08/24/18 00:35 Urine Glucose (UA) Normal mg/dL (Normal) 08/24/18 00:35 Urine Ketones Negative mg/dL (Negative) 08/24/18 00:35 Urine Blood Negative (Negative) 08/24/18 00:35 Urine Nitrite Negative (Negative) 08/24/18 00:35 Urine Bilirubin Negative (Negative) 08/24/18 00:35 Urine Urobilinogen Normal mg/dL (Normal) 08/24/18 00:35 Ur Leukocyte Esterase Large (Negative) H 08/24/18 00:35 Urine Microscopic RBC 3-5 per hpf (0-3) H 08/24/18 00:35 Urine Microscopic WBC 5-15 per hpf (0-3) H 08/24/18 00:35 Ur Squamous Epith Cells Many per lpf (None-Few) H 08/24/18 00:35 Urine Bacteria Few per hpf (None-Few) 08/24/18 00:35 Hyaline Casts None Seen per lpf (None-Few) 08/24/18 00:35 Urine Test Negative (Negative) 08/24/18 00:35 Salicylates 3.3 mg/dL (15.0-30.0) L 08/24/18 00:37 Urine Opiates Screen Negative ng/mL (Bmpenx=914) 08/24/18 00:35 Acetaminophen < 10 mcg/mL (10-20) L 08/24/18 00:37 Ur Barbiturates Screen Negative ng/mL (Slgjcm=080) 08/24/18 00:35 Ur Phencyclidine Scrn Negative ng/mL (Cutoff=25) 08/24/18 00:35 Ur Amphetamines Screen Negative ng/mL (Wkdfml=5524) 08/24/18 00:35 U Benzodiazepines Scrn Negative ng/mL (Vgdfvn=128) 08/24/18 00:35 Urine Cocaine Screen Negative ng/mL (Cutoff= 300) 08/24/18 00:35 U Marijuana (THC) Screen Positive ng/mL (Cutoff = 50) H 08/24/18 00:35 Ur Drug Screen Interp See Below 08/24/18 00:35 Ethyl Alcohol < 10 mg/dL (Less than 10) 08/24/18 00:37 Assessment and Plan (1) Acute psychosis Current visit: Yes Status: Acute Plan: Admit inpatient for safety and stabilization, Close observation, Suicide Precautions per unit protocol, Encourage participation in unit milieu, Group Therapy, Monitor sleep, Monitor appetite, Family/Supportive other meeting Risks, benefits, side effects, alternatives discussed w/pt: Yes Patient agreeable to treatment: Yes Plans for Post Hospital Care: Transfer Other Estimated Length of Stay (Days): 5 (2) Bipolar affective, manic, severe w/ psych Current visit: Yes Status: Acute Plan: Admit inpatient for safety and stabilization, Close observation, Suicide Precautions per unit protocol, Encourage participation in unit milieu, Group Therapy, Monitor sleep, Monitor appetite, Secure weapons, Family/Supportive other meeting Risks, benefits, side effects, alternatives discussed w/pt: Yes Patient agreeable to treatment: Yes Plans for Post Hospital Care: Transfer Other Estimated Length of Stay (Days): 5 (3) Cannabis abuse Current visit: Yes Status: Acute Plan: Admit inpatient for safety and stabilization, Close observation, Suicide Precautions per unit protocol, Encourage participation in unit milieu, Group Therapy, Monitor sleep, Monitor appetite, Secure weapons, Family/Supportive other meeting Risks, benefits, side effects, alternatives discussed w/pt: Yes Patient agreeable to treatment: Yes Plans for Post Hospital Care: Transfer Other Estimated Length of Stay (Days): 4 (4) Methamphetamine abuse Current visit: Yes Status: Chronic Plan: Admit inpatient for safety and stabilization, Suicide Precautions per unit protocol, Group Therapy, Monitor sleep Risks, benefits, side effects, alternatives discussed w/pt: Yes Patient agreeable to treatment: Yes Plans for Post Hospital Care: Transfer Other
[2018-08-25] MEDS: *HR* LORazepam 1 MG TABLET PO SCH ×2 (12:35→20:10)
[2018-08-25] MEDS: Nicotine 21 MG PATCH.TD24 TD SCH (13:00)
[2018-08-25] MEDS: traZODone 50 MG TABLET PO PRN (20:09)
[2018-08-25] MEDS: OXcarbazepine 150 MG TABLET PO SCH (20:09)
[2018-08-25] MEDS: Ziprasidone 20 MG CAPSULE PO SCH (20:09)
[2018-08-25] MEDS: *HR* LORazepam 2 MG/ML VIAL IM PRN (20:40)
[2018-08-25] MEDS: Ziprasidone injection 20 MG/ML VIAL IM PRN (20:41)
[2018-08-26] MEDS: Nicotine 21 MG PATCH.TD24 TD SCH (08:38)
[2018-08-26] MEDS: *HR* LORazepam 1 MG TABLET PO SCH (08:39)
[2018-08-26] MEDS: OXcarbazepine 150 MG TABLET PO SCH ×2 (08:39→20:00)
[2018-08-26] MEDS: Ziprasidone 20 MG CAPSULE PO SCH ×2 (08:39→20:00)
--- NOTE | 2018-08-26 10:59 | Psychiatry Progress Note ---
Date of Encounter: 08/26/18 Time of Encounter: 10:25 Subjective Interval history: Patient seen today , case d/w treatment team , she is very agitated had recieved prn medications and preoccupied with her psychosis, grandiose and paranoid, wants to leave as no insight and very restless and agitated. states i am lot better and ready to go , i have to get my pearls, diamonds so i can get it is going to be so awesome. i have the time keeper and olman is my money , [employer] world , stephanie is one of my child. she is having disorganized thought process and delusional grandiose like i am manuel of [place] and i am here to save the world as my father is GOD , chevy is on earth now. she has had thoughts about smack the fuck out of him . she has no insight and poor judgement. sleep improving , appetite is better, her mother came yesterday to visit. at present contiue inpatient stabilization for her psychosis and agitation. will increase geodon 40 mg bid , dc lorazepam and start klonopin 1 mg bid. Review of Systems Psychiatric: Reports: depression, anxiety, abnormal sleep pattern, change in appetite, auditory hallucinations, visual hallucinations, difficulty concentrating, irritability, mood swings, panic attacks Results - Vital Signs Vital Signs: Temp Pulse Resp BP Pulse Ox 98.3 F 64 18 130/91 98 08/26/18 09:00 08/26/18 09:00 08/26/18 09:00 08/26/18 09:00 08/24/18 00:10 Assessment and Plan (1) Acute psychosis Current visit: Yes Status: Acute Risks, benefits, side effects, alternatives discussed w/pt: Yes Patient agreeable to treatment: Yes (2) Bipolar affective, manic, severe w/ psych Current visit: Yes Status: Acute Risks, benefits, side effects, alternatives discussed w/pt: Yes Patient agreeable to treatment: Yes (3) Cannabis abuse Current visit: Yes Status: Acute Risks, benefits, side effects, alternatives discussed w/pt: Yes Patient agreeable to treatment: Yes (4) Methamphetamine abuse Current visit: Yes Status: Chronic Risks, benefits, side effects, alternatives discussed w/pt: Yes Patient agreeable to treatment: Yes Consult Discharge Plan - Plan Referrals: NONE,PCP [Primary Care Provider] - Psychiatry Exam - Constitutional Vitals: Temp Pulse Resp BP Pulse Ox 98.3 F 64 18 130/91 98 08/26/18 09:00 08/26/18 09:00 08/26/18 09:00 08/26/18 09:00 08/24/18 00:10 General appearance: thin - Musculoskeletal Gait: normal Station: other Strength & Tone: normal for patient - Psychiatric Patient Orientation: Yes Person, Yes Time, Yes Place Level of alertness: Alert Behavior: anxious, restless, uncooperative, impulsive Psychomotor activity: Increased Eye Contact: Minimal Contact Mood Description: Angry, Depressed, Anxious, Irritable Affect description: incongruent with mood Speech Volume: Excessive Variation Language & Vocabulary: consistent with education Thought Process: Circumstantial, Tangential, Racing Thought Content: Yes Paranoid delusion, Yes Grandiose delusion Attention Span Ability: Unable to Sustain Attention Memory Description: Grossly Intact Patient Reliability: Not Reliable Historian Fund of knowledge: Yes average Intelligence Estimate: Average Judgment: Poor Insight: None
[2018-08-26] MEDS: *HR* LORazepam 1 MG TABLET PO PRN (12:26)
[2018-08-26] MEDS: clonazePAM 1 MG TABLET PO SCH ×2 (12:38→20:00)
[2018-08-26] MEDS: hydrOXYzine pamoate 25 MG CAPSULE PO PRN (20:00)
[2018-08-26] MEDS: Ibuprofen 400 MG TABLET PO PRN (20:01)
[2018-08-26] MEDS: traZODone 50 MG TABLET PO PRN (20:01)
[2018-08-26] MEDS ORDERED: clonazePAM 1 MG TABLET PO SCH (21:00)
[2018-08-27] MEDS: Ibuprofen 400 MG TABLET PO PRN ×3 (02:03→19:41)
[2018-08-27] MEDS: hydrOXYzine pamoate 25 MG CAPSULE PO PRN ×4 (02:03→19:41)
[2018-08-27] MEDS: *HR* LORazepam 1 MG TABLET PO PRN (04:19)
[2018-08-27] MEDS: Ziprasidone 20 MG CAPSULE PO SCH (08:15)
[2018-08-27] MEDS: OXcarbazepine 150 MG TABLET PO SCH ×2 (08:15→19:56)
[2018-08-27] MEDS: clonazePAM 1 MG TABLET PO SCH ×2 (08:15→19:41)
[2018-08-27] MEDS: Nicotine 21 MG PATCH.TD24 TD SCH (08:16)
--- NOTE | 2018-08-27 12:06 | Psychiatry Progress Note ---
Date of Encounter: 08/27/18 Time of Encounter: 11:40 Subjective Interval history: Patient seen today , case d/w treatment team , remains manic , loud at times, with extreme makeup and poor insight. She has been compliant with her medications and also having cravings , she is delusional grandiose , thought process minimal improvement. states wants to be off geodonas it makes her sleepy . states did not sleep well last night. iget angry and dragons com out , i do not like the pill you are giving me. will increase trileptal to 300 mg bid , patient doesnot want depakote or lithium. continue observation and stabilization. will give 80 mg geodon at hs and and not bid. Review of Systems Psychiatric: Reports: depression, anxiety, abnormal sleep pattern, change in appetite, auditory hallucinations, visual hallucinations, difficulty concentrating, irritability, mood swings, panic attacks Results - Vital Signs Vital Signs: Temp Pulse Resp BP Pulse Ox 98.2 F 82 16 96/65 98 08/27/18 09:00 08/27/18 09:00 08/27/18 09:00 08/27/18 09:00 08/24/18 00:10 Assessment and Plan (1) Acute psychosis Current visit: Yes Status: Acute Risks, benefits, side effects, alternatives discussed w/pt: Yes Patient agreeable to treatment: Yes (2) Bipolar affective, manic, severe w/ psych Current visit: Yes Status: Acute Risks, benefits, side effects, alternatives discussed w/pt: Yes Patient agreeable to treatment: Yes (3) Cannabis abuse Current visit: Yes Status: Acute Risks, benefits, side effects, alternatives discussed w/pt: Yes Patient agreeable to treatment: Yes (4) Methamphetamine abuse Current visit: Yes Status: Chronic Risks, benefits, side effects, alternatives discussed w/pt: Yes Patient agreeable to treatment: Yes Consult Discharge Plan - Plan Referrals: NONE,PCP [Primary Care Provider] - Psychiatry Exam - Constitutional Vitals: Temp Pulse Resp BP Pulse Ox 98.2 F 82 16 96/65 98 08/27/18 09:00 08/27/18 09:00 08/27/18 09:00 08/27/18 09:00 08/24/18 00:10 General appearance: thin - Musculoskeletal Gait: normal Station: other Strength & Tone: normal for patient - Psychiatric Patient Orientation: Yes Person, Yes Time, Yes Place Level of alertness: Alert Behavior: distractible, talkative Psychomotor activity: Normal Eye Contact: Maintains Eye Contact Mood Description: Depressed Affect description: constricted Speech Volume: Normal Speech pattern: excessive Language & Vocabulary: consistent with education Thought Process: Circumstantial, Loose Associations Thought Content: Yes Preoccupation, Yes Paranoid delusion, Yes Grandiose delusion Perceptual Disturbances: Yes Reacting to internal stimuli Attention Span Ability: Unable to Sustain Attention Patient Reliability: Questionable Historian Fund of knowledge: Yes average Intelligence Estimate: Average Judgment: Poor Insight: Minimal
[2018-08-27] MEDS: Ziprasidone injection 20 MG/ML VIAL IM PRN (18:26)
[2018-08-27] MEDS: *HR* LORazepam 2 MG/ML VIAL IM PRN (18:27)
[2018-08-27] MEDS: traZODone 50 MG TABLET PO PRN (19:41)
[2018-08-27] MEDS ORDERED: *HR* LORazepam 2 MG/ML VIAL IM ONE (19:53)
[2018-08-27] MEDS: Preparation H Ointment 30 GM TUBE RC PRN (20:10)
[2018-08-27] MEDS: OLANZapine 5 MG TAB.RAPDIS PO PRN (20:21)
[2018-08-28] MEDS: Ibuprofen 400 MG TABLET PO PRN ×2 (02:49→17:03)
[2018-08-28] MEDS: OLANZapine 5 MG TAB.RAPDIS PO PRN ×3 (04:10→23:41)
[2018-08-28] MEDS: *HR* LORazepam 1 MG TABLET PO PRN ×2 (04:10→17:30)
[2018-08-28] MEDS: Nicotine 21 MG PATCH.TD24 TD SCH (08:05)
[2018-08-28] MEDS: OXcarbazepine 150 MG TABLET PO SCH (08:06)
[2018-08-28] MEDS: clonazePAM 1 MG TABLET PO SCH ×3 (08:06→20:48)
--- NOTE | 2018-08-28 11:03 | Psychiatry Progress Note ---
Date of Encounter: 08/28/18 Time of Encounter: 10:30 Subjective Interval history: Patient seen today , case d/w treatment plan . she is med seeking asking for increase of klonopin , suboxone, tramadol and does not want to stay here because i have mission , i have to fight drug war , i have to take care of babies , i am the omega i have to save the world, as end of world is coming, i am going to [place] and i can save the world and our God Mumtaz will bring the world back as it was and i will be saviour as i have to open the pandora box. she is restless , anxious has to be redirected. Last night she was given prn medication for agitation , states i am the LIZ and i take no shit from no body . Shayan is my dad , he is preparing us for war. pradeep loves me . Remains psychotic with disorganized thought process and easily agitated , needs continued monitoring and stabilization denies side effects. Review of Systems Psychiatric: Reports: depression, anxiety, abnormal sleep pattern, change in appetite, auditory hallucinations, visual hallucinations, difficulty concentrating, irritability, mood swings, panic attacks Results - Vital Signs Vital Signs: Temp Pulse Resp BP Pulse Ox 98.3 F 92 16 99/63 98 08/28/18 08:48 08/28/18 08:48 08/28/18 08:48 08/28/18 08:48 08/24/18 00:10 Assessment and Plan (1) Acute psychosis Current visit: Yes Status: Acute Risks, benefits, side effects, alternatives discussed w/pt: Yes Patient agreeable to treatment: Yes (2) Bipolar affective, manic, severe w/ psych Current visit: Yes Status: Acute Risks, benefits, side effects, alternatives discussed w/pt: Yes Patient agreeable to treatment: Yes (3) Cannabis abuse Current visit: Yes Status: Acute Risks, benefits, side effects, alternatives discussed w/pt: Yes Patient agreeable to treatment: Yes (4) Methamphetamine abuse Current visit: Yes Status: Chronic Risks, benefits, side effects, alternatives discussed w/pt: Yes Patient agreeable to treatment: Yes Consult Discharge Plan - Plan Referrals: NONE,PCP [Primary Care Provider] - Psychiatry Exam - Constitutional Vitals: Temp Pulse Resp BP Pulse Ox 98.3 F 92 16 99/63 98 08/28/18 08:48 08/28/18 08:48 08/28/18 08:48 08/28/18 08:48 08/24/18 00:10 General appearance: average - Musculoskeletal Gait: normal Station: other Strength & Tone: normal for patient - Psychiatric Patient Orientation: Yes Person, Yes Time Level of alertness: Alert Behavior: anxious, distractible, talkative Psychomotor activity: Increased Eye Contact: Maintains Eye Contact Mood Description: Labile, Irritable Affect description: labile Speech Volume: Normal Speech pattern: disorganized, excessive Language & Vocabulary: consistent with education Thought Process: Loose Associations, Tangential, Racing Thought Content: Yes Christian delusion, Yes Grandiose delusion Perceptual Disturbances: Yes Auditory hallucinations Attention Span Ability: Unable to Sustain Attention Memory Description: Grossly Intact Patient Reliability: Questionable Historian Fund of knowledge: Yes average Intelligence Estimate: Average Judgment: Poor Insight: None
[2018-08-28] MEDS: hydrOXYzine pamoate 25 MG CAPSULE PO PRN (12:27)
[2018-08-28 14:09] LABS: Alanine Aminotransferase 206 Units/L (7-52); Albumin 4.1 g/dL (3.5-5.7); Albumin/Globulin Ratio 1.2 (1.1-2.2); Alkaline Phosphatase 147 Units/L (34-104); Aspartate Amino Transferase 142 Units/L (13-39); BUN/Creatinine Ratio 25 (6-26); Bilirubin,Total 1.3 mg/dL (0.3-1.0); Blood Urea Nitrogen 19 mg/dL (6-20); Calcium 9.5 mg/dL (8.6-10.3); Carbon Dioxide 28 mEq/L (23-29); Chloride 104 mEq/L (98-107); Globulin 3.4 g/dL (2.4-3.5); Glucose 120 mg/dL (70-105); Osmolality,Calculated 287 (280-300); Potassium 4.4 mEq/L (3.5-5.1); Sodium 137 mEq/L (136-145); Total Protein 7.5 g/dL (6.4-8.9); eGFR For Non-African Americans > 60 (> 60)
[2018-08-28] MEDS: Preparation H Ointment 30 GM TUBE RC PRN (14:17)
[2018-08-28] MEDS: Gabapentin 300 MG CAPSULE PO SCH ×2 (14:45→20:48)
[2018-08-28] MEDS ORDERED: Ziprasidone 80 MG CAPSULE PO SCH (21:00)
[2018-08-29] MEDS: Ibuprofen 400 MG TABLET PO PRN ×2 (04:02→18:23)
[2018-08-29] MEDS: hydrOXYzine pamoate 25 MG CAPSULE PO PRN (04:02)
[2018-08-29] MEDS: *HR* LORazepam 2 MG/ML VIAL IM PRN (04:52)
[2018-08-29] MEDS: OLANZapine 5 MG TAB.RAPDIS PO PRN ×3 (04:53→15:03)
[2018-08-29] MEDS: clonazePAM 1 MG TABLET PO SCH ×3 (08:36→20:42)
[2018-08-29] MEDS: Gabapentin 300 MG CAPSULE PO SCH ×2 (08:36→22:26)
[2018-08-29] MEDS: Nicotine 21 MG PATCH.TD24 TD SCH (08:36)
[2018-08-29] MEDS: *HR* LORazepam 1 MG TABLET PO PRN (09:23)
[2018-08-29] MEDS ORDERED: *HR* LORazepam 2 MG/ML VIAL IM STA (10:37)
--- NOTE | 2018-08-29 10:37 | Psychiatry Progress Note ---
Date of Encounter: 08/29/18 Time of Encounter: 10:00 Subjective Interval history: Patient seen today , case d/w treatment team , patient remains agitated and yelling,loud and has been given prn medication. She has been calling engine lathe operator and has been very verbal and distruptive , and calling people as wants them to take her out. she becomes agitated and loud when no one answer phone. she remains grandiose and paraniod and osychotic , she has not shown much improvement. she has no insight and poor judgement. Labs were drawn as h/o hepatitis , increase LFT trileptal and trazodone discontinued and gabapentin is being increased . she is at present very agitated and needs prn medication, she has been disrupting unit milieu. need close monitoring and stabilization. Review of Systems Psychiatric: Reports: depression, anxiety, abnormal sleep pattern, change in appetite, auditory hallucinations, visual hallucinations, difficulty concentrating, irritability, mood swings, panic attacks Results - Vital Signs Vital Signs: Temp Pulse Resp BP Pulse Ox 98.4 F 81 16 117/80 98 08/29/18 09:00 08/29/18 09:00 08/29/18 09:00 08/29/18 09:00 08/24/18 00:10 - Labs Labs: Laboratory Results - last 24 hr 08/28/18 11:55 Sodium 137 Potassium 4.4 Chloride 104 Carbon Dioxide 28 BUN 19 Creatinine 0.76 Est GFR ( Amer) > 60 Est GFR (Non-Af Amer) > 60 BUN/Creatinine Ratio 25 Glucose 120 H Calculated Osmolality 287 Calcium 9.5 Total Bilirubin 1.3 H AST 142 H ALT 206 H Alkaline Phosphatase 147 H Serum Total Protein 7.5 Albumin 4.1 Globulin 3.4 Albumin/Globulin Ratio 1.2 Assessment and Plan (1) Acute psychosis Current visit: Yes Status: Acute Risks, benefits, side effects, alternatives discussed w/pt: Yes Patient agreeable to treatment: Yes (2) Bipolar affective, manic, severe w/ psych Current visit: Yes Status: Acute Risks, benefits, side effects, alternatives discussed w/pt: Yes Patient agreeable to treatment: Yes (3) Cannabis abuse Current visit: Yes Status: Acute Risks, benefits, side effects, alternatives discussed w/pt: Yes Patient agreeable to treatment: Yes (4) Methamphetamine abuse Current visit: Yes Status: Chronic Risks, benefits, side effects, alternatives discussed w/pt: Yes Patient agreeable to treatment: Yes Consult Discharge Plan - Plan Referrals: NONE,PCP [Primary Care Provider] - Psychiatry Exam - Constitutional Vitals: Temp Pulse Resp BP Pulse Ox 98.4 F 81 16 117/80 98 08/29/18 09:00 08/29/18 09:00 08/29/18 09:00 08/29/18 09:00 08/24/18 00:10 General appearance: age & developmentally appropriate - Musculoskeletal Gait: normal Station: other Strength & Tone: normal for patient - Psychiatric Patient Orientation: Yes Person, Yes Time, Yes Place Level of alertness: Alert Behavior: agitated, uncooperative, impulsive Psychomotor activity: Agitated Eye Contact: Minimal Contact Mood Description: Angry, Irritable Affect description: congruent with mood Speech Volume: Excessive Variation Speech pattern: pressured Language & Vocabulary: consistent with education Thought Process: Circumstantial, Tangential Thought Content: Yes Paranoid delusion, Yes Quaker delusion, Yes Grandiose delusion Perceptual Disturbances: Yes Reacting to internal stimuli Attention Span Ability: Unable to Sustain Attention Patient Reliability: Not Reliable Historian Fund of knowledge: Yes average Intelligence Estimate: Average Judgment: Poor Insight: None
[2018-08-29] MEDS ORDERED: Gabapentin 300 MG CAPSULE PO STA (10:38)
[2018-08-29] MEDS ORDERED: *HR* LORazepam 2 MG/ML VIAL IM ONE (16:26)
[2018-08-29] MEDS ORDERED: chlorproMAZINE 25 MG TABLET PO ONE (16:27)
[2018-08-29] MEDS: MOM Conc 10 ML UD.LIQ PO PRN (18:00)
[2018-08-29] MEDS ORDERED: chlorproMAZINE 25 MG TABLET PO SCH (21:00)
[2018-08-29] MEDS ORDERED: Ziprasidone 20 MG CAPSULE PO SCH (21:00)
[2018-08-30] MEDS: Ibuprofen 400 MG TABLET PO PRN (00:55)
[2018-08-30] MEDS: Nicotine 21 MG PATCH.TD24 TD SCH (08:50)
[2018-08-30] MEDS: Gabapentin 300 MG CAPSULE PO SCH ×3 (08:51→20:08)
[2018-08-30] MEDS: clonazePAM 1 MG TABLET PO SCH ×3 (08:51→20:08)
--- NOTE | 2018-08-30 11:24 | Psychiatry Progress Note ---
Date of Encounter: 08/30/18 Time of Encounter: 11:00 Subjective Interval history: Patient seen today ,case d/w staff , she was very agitated last night and meds given , she slept few hours. States i have a house , and i will not go to rehab ,my family wants me to go but i have a mission , stephanie { other client } is my lead and protector. The vampire is also in love with me, she states i am devil and i am saviour.I was prophets . 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 she has been psychotic , gets agitated easily mostly when refused discharge , she will continuosly asking for discharge, she is loud and disruptive at times, today mostly verbally redirected. meds were changed , discontinued geodon and started Thorazine , her LFT are high neurontin increased , needs continued stabilization. has probate hearing on 09/04/18. Review of Systems Psychiatric: Reports: depression, anxiety, abnormal sleep pattern, change in appetite, auditory hallucinations, visual hallucinations, difficulty concentrating, irritability, mood swings, panic attacks Results - Vital Signs Vital Signs: Temp Pulse Resp BP Pulse Ox 97.2 F L 107 18 117/72 98 08/30/18 09:00 08/30/18 09:00 08/30/18 09:00 08/30/18 09:00 08/24/18 00:10 Assessment and Plan (1) Acute psychosis Current visit: Yes Status: Acute Risks, benefits, side effects, alternatives discussed w/pt: Yes Patient agreeable to treatment: Yes (2) Bipolar affective, manic, severe w/ psych Current visit: Yes Status: Acute Risks, benefits, side effects, alternatives discussed w/pt: Yes Patient agreeable to treatment: Yes (3) Cannabis abuse Current visit: Yes Status: Acute Risks, benefits, side effects, alternatives discussed w/pt: Yes Patient agreeable to treatment: Yes (4) Methamphetamine abuse Current visit: Yes Status: Chronic Risks, benefits, side effects, alternatives discussed w/pt: Yes Patient agreeable to treatment: Yes Consult Discharge Plan - Plan Referrals: NONE,PCP [Primary Care Provider] - Psychiatry Exam - Constitutional Vitals: Temp Pulse Resp BP Pulse Ox 97.2 F L 107 18 117/72 98 08/30/18 09:00 08/30/18 09:00 08/30/18 09:00 08/30/18 09:00 08/24/18 00:10 General appearance: age & developmentally appropriate - Musculoskeletal Gait: normal Station: other Strength & Tone: normal for patient - Psychiatric Patient Orientation: Yes Person, Yes Time, Yes Place Level of alertness: Alert Behavior: distractible, impulsive, talkative Psychomotor activity: Increased Eye Contact: Maintains Eye Contact Mood Description: Elevated Affect description: congruent with mood Speech Volume: Normal, Loud Speech pattern: excessive, pressured Language & Vocabulary: consistent with education Thought Process: Circumstantial, Tangential, Racing Thought Content: Yes Preoccupation, Yes Paranoid delusion, Yes Islam delusion, Yes Grandiose delusion Perceptual Disturbances: Yes Visual hallucinations Attention Span Ability: Unable to Sustain Attention Memory Description: Grossly Intact Patient Reliability: Reliable Historian Fund of knowledge: Yes average Intelligence Estimate: Average Judgment: Poor Insight: None
[2018-08-30] MEDS ORDERED: traMADol 50 MG TABLET PO ONE (12:58)
[2018-08-30] MEDS: *HR* LORazepam 2 MG/ML VIAL IM PRN ×2 (13:10→20:00)
[2018-08-30] MEDS: chlorproMAZINE 25 MG TABLET PO SCH ×2 (13:11→20:07)
[2018-08-30] MEDS: Haloperidol Lactate 5 MG/ML VIAL IM PRN (20:01)
[2018-08-31] MEDS: Ibuprofen 400 MG TABLET PO PRN ×2 (01:56→17:02)
[2018-08-31] MEDS: clonazePAM 1 MG TABLET PO SCH ×3 (08:02→20:39)
[2018-08-31] MEDS: chlorproMAZINE 25 MG TABLET PO SCH ×2 (08:02→20:40)
[2018-08-31] MEDS: Gabapentin 300 MG CAPSULE PO SCH ×3 (08:02→20:38)
[2018-08-31] MEDS: Nicotine 21 MG PATCH.TD24 TD SCH (08:04)
--- NOTE | 2018-08-31 12:47 | Psychiatry Progress Note ---
Date of Encounter: 08/31/18 Time of Encounter: 12:23 Subjective Interval history: Patient seen today , remains agitated , impulsive, intrusive , yelling and threathening and demanding. She is preoccupied with going home, states has place to go has been given a house she is manuel and father is Toni Downey. she is now on 2 antipsychotic was also on geodon which now has bee dc, and invega started to give her injectable. she has calmed little from thorazine and it has increased to 200 mg, she is tolerating medication , denies side effects. she has poor judgement , no insight and very disruptive, has been given prn medication 2-3 times a day. Patient will need states placement as not getting benefit from short stay , she will benefit from state placement. Review of Systems Psychiatric: Reports: depression, anxiety, abnormal sleep pattern, change in appetite, auditory hallucinations, visual hallucinations, difficulty concentrating, irritability, mood swings, panic attacks Results - Vital Signs Vital Signs: Temp Pulse Resp BP Pulse Ox 97.7 F 89 18 114/76 98 08/31/18 08:18 08/31/18 08:18 08/31/18 08:18 08/31/18 08:18 08/31/18 08:18 Assessment and Plan (1) Acute psychosis Current visit: Yes Status: Acute Risks, benefits, side effects, alternatives discussed w/pt: Yes Patient agreeable to treatment: Yes (2) Bipolar affective, manic, severe w/ psych Current visit: Yes Status: Acute Risks, benefits, side effects, alternatives discussed w/pt: Yes Patient agreeable to treatment: Yes (3) Cannabis abuse Current visit: Yes Status: Acute Risks, benefits, side effects, alternatives discussed w/pt: Yes Patient agreeable to treatment: Yes (4) Methamphetamine abuse Current visit: Yes Status: Chronic Risks, benefits, side effects, alternatives discussed w/pt: Yes Patient agreeable to treatment: Yes Consult Discharge Plan - Plan Referrals: NONE,PCP [Primary Care Provider] - Psychiatry Exam - Constitutional Vitals: Temp Pulse Resp BP Pulse Ox 97.7 F 89 18 114/76 98 08/31/18 08:18 08/31/18 08:18 08/31/18 08:18 08/31/18 08:18 08/31/18 08:18 General appearance: age & developmentally appropriate - Musculoskeletal Gait: normal Station: other Strength & Tone: normal for patient - Psychiatric Patient Orientation: Yes Person, Yes Time, Yes Place Level of alertness: Alert Behavior: agitated, uncooperative, distractible, impulsive Psychomotor activity: Agitated Eye Contact: Minimal Contact Mood Description: Elevated, Labile, Irritable Affect description: labile Speech Volume: Excessive Variation Speech pattern: disorganized Language & Vocabulary: consistent with education Thought Process: Circumstantial, Tangential Thought Content: Yes Preoccupation, Yes Paranoid delusion, Yes Voodoo delusion, Yes Grandiose delusion Perceptual Disturbances: Yes Auditory hallucinations, Yes Visual hallucinations Attention Span Ability: Unable to Sustain Attention Fund of knowledge: Yes average Intelligence Estimate: Average Judgment: Poor Insight: None
[2018-08-31] MEDS: hydrOXYzine pamoate 25 MG CAPSULE PO PRN ×2 (13:20→22:06)
[2018-08-31] MEDS: MOM Conc 10 ML UD.LIQ PO PRN (17:03)
[2018-08-31] MEDS: Preparation H Ointment 30 GM TUBE RC PRN (22:03)
[2018-09-01] MEDS: hydrOXYzine pamoate 25 MG CAPSULE PO PRN (02:37)
[2018-09-01] MEDS: MOM Conc 10 ML UD.LIQ PO PRN (04:29)
[2018-09-01] MEDS: Nicotine 21 MG PATCH.TD24 TD SCH (08:11)
[2018-09-01] MEDS: Gabapentin 300 MG CAPSULE PO SCH ×3 (08:13→20:13)
[2018-09-01] MEDS: *HR* LORazepam 1 MG TABLET PO PRN (08:13)
[2018-09-01] MEDS: Ibuprofen 400 MG TABLET PO PRN ×2 (08:13→18:54)
[2018-09-01] MEDS: chlorproMAZINE 25 MG TABLET PO SCH ×2 (08:14→20:13)
[2018-09-01] MEDS: clonazePAM 1 MG TABLET PO SCH ×3 (08:14→20:14)
--- NOTE | 2018-09-01 13:01 | Psychiatry Progress Note ---
Date of Encounter: 09/01/18 Time of Encounter: 12:35 Subjective Interval history: Patient seen , case d/w treatment team ,remains extremely agitated and loud, cursing and verbal , disruptive and intrusive , will knock my door evry few minutes to be seen again and again. she remains delusional that has mission and one of the clients is her saviour and she will take her with her , she is also paranoid. grandiose and religiously preoccupied . she is on 2 anti psychotics and has been given prn medication for her severe agitation. she remains psychotic and manic , will continue stabilization and states placement . Review of Systems Psychiatric: Reports: depression, anxiety, abnormal sleep pattern, change in appetite, auditory hallucinations, visual hallucinations, difficulty concentrating, irritability, mood swings, panic attacks Results - Vital Signs Vital Signs: Temp Pulse Resp BP Pulse Ox 97.9 F 114 18 116/71 98 09/01/18 09:00 09/01/18 09:00 09/01/18 09:00 09/01/18 09:00 08/31/18 08:18 Assessment and Plan (1) Acute psychosis Current visit: Yes Status: Acute Risks, benefits, side effects, alternatives discussed w/pt: Yes Patient agreeable to treatment: Yes (2) Bipolar affective, manic, severe w/ psych Current visit: Yes Status: Acute Risks, benefits, side effects, alternatives discussed w/pt: Yes Patient agreeable to treatment: Yes (3) Cannabis abuse Current visit: Yes Status: Acute Risks, benefits, side effects, alternatives discussed w/pt: Yes Patient agreeable to treatment: Yes (4) Methamphetamine abuse Current visit: Yes Status: Chronic Risks, benefits, side effects, alternatives discussed w/pt: Yes Patient agreeable to treatment: Yes Consult Discharge Plan - Plan Referrals: NONE,PCP [Primary Care Provider] - Psychiatry Exam - Constitutional Vitals: Temp Pulse Resp BP Pulse Ox 97.9 F 114 18 116/71 98 09/01/18 09:00 09/01/18 09:00 09/01/18 09:00 09/01/18 09:00 08/31/18 08:18 General appearance: thin - Musculoskeletal Gait: normal Station: other Strength & Tone: normal for patient - Psychiatric Patient Orientation: Yes Person, Yes Time, Yes Place Level of alertness: Alert Behavior: agitated, hostile, uncooperative, impulsive Psychomotor activity: Increased Eye Contact: Minimal Contact Mood Description: Anxious, Labile, Irritable Affect description: labile Speech Volume: Excessive Variation Speech pattern: disorganized, excessive Language & Vocabulary: consistent with education Thought Process: Loose Associations, Tangential, Disorganized Thought Content: Yes Preoccupation, Yes Paranoid delusion, Yes Grandiose delusion Perceptual Disturbances: Yes Reacting to internal stimuli Attention Span Ability: Unable to Sustain Attention Memory Description: Grossly Intact Fund of knowledge: Yes average Intelligence Estimate: Average Judgment: Poor Insight: None
[2018-09-01] MEDS: Preparation H Ointment 30 GM TUBE RC PRN (18:25)
[2018-09-02] MEDS: Ibuprofen 400 MG TABLET PO PRN (03:16)
[2018-09-02] MEDS: hydrOXYzine pamoate 25 MG CAPSULE PO PRN ×2 (03:17→20:12)
[2018-09-02] MEDS: Nicotine 21 MG PATCH.TD24 TD SCH (08:10)
[2018-09-02] MEDS: Gabapentin 300 MG CAPSULE PO SCH ×3 (08:11→20:13)
[2018-09-02] MEDS: chlorproMAZINE 25 MG TABLET PO SCH ×2 (08:11→20:13)
[2018-09-02] MEDS: clonazePAM 1 MG TABLET PO SCH ×3 (08:11→20:13)
--- NOTE | 2018-09-02 11:36 | Psychiatry Progress Note ---
Date of Encounter: 09/02/18 Time of Encounter: 11:18 Subjective Interval history: Patient seen today , case d/w treatment team ,she was very agitated , started cursing at staff and was given prn medication. she states is free of drugs and can go home, states can you give me percocet and increase my klonopin. you are keeping me here i know i have been gifted the house by my aunt , my father is president , can you get me his number. her mission starts in 2 days , i have to go to [employer] [employer] to get my jewellry . she remains delusional , agitated , and intrusive and loud . denies side effects. she does not want to take brown pill, she has probate on . Review of Systems Psychiatric: Reports: depression, anxiety, abnormal sleep pattern, change in appetite, auditory hallucinations, visual hallucinations, difficulty concentrating, irritability, mood swings, panic attacks Results - Vital Signs Vital Signs: Temp Pulse Resp BP Pulse Ox 97.5 F L 99 16 115/77 98 09/02/18 09:00 09/02/18 09:00 09/02/18 09:00 09/02/18 09:00 08/31/18 08:18 Assessment and Plan (1) Acute psychosis Current visit: Yes Status: Acute Risks, benefits, side effects, alternatives discussed w/pt: Yes Patient agreeable to treatment: Yes (2) Bipolar affective, manic, severe w/ psych Current visit: Yes Status: Acute Risks, benefits, side effects, alternatives discussed w/pt: Yes Patient agreeable to treatment: Yes (3) Cannabis abuse Current visit: Yes Status: Acute Risks, benefits, side effects, alternatives discussed w/pt: Yes Patient agreeable to treatment: Yes (4) Methamphetamine abuse Current visit: Yes Status: Chronic Risks, benefits, side effects, alternatives discussed w/pt: Yes Patient agreeable to treatment: Yes Consult Discharge Plan - Plan Referrals: NONE,PCP [Primary Care Provider] - Psychiatry Exam - Constitutional Vitals: Temp Pulse Resp BP Pulse Ox 97.5 F L 99 16 115/77 98 09/02/18 09:00 09/02/18 09:00 09/02/18 09:00 09/02/18 09:00 08/31/18 08:18 General appearance: age & developmentally appropriate - Musculoskeletal Gait: normal Station: other Strength & Tone: normal for patient - Psychiatric Patient Orientation: Yes Person, Yes Time, Yes Place Level of alertness: Alert Behavior: agitated, distractible, impulsive, talkative Psychomotor activity: Increased Eye Contact: Maintains Eye Contact Mood Description: Elevated, Irritable Affect description: congruent with mood Speech Volume: Normal Speech pattern: excessive Language & Vocabulary: consistent with education Thought Process: Circumstantial, Tangential, Racing Thought Content: Yes Preoccupation, Yes Paranoid delusion, Yes Druze delusion, Yes Grandiose delusion Attention Span Ability: Unable to Sustain Attention Memory Description: Grossly Intact Patient Reliability: Reliable Historian Fund of knowledge: Yes average Judgment: Poor Insight: None
[2018-09-02] MEDS: Preparation H Ointment 30 GM TUBE RC PRN (13:23)
[2018-09-03] MEDS: Ibuprofen 400 MG TABLET PO PRN (00:32)
[2018-09-03] MEDS: hydrOXYzine pamoate 25 MG CAPSULE PO PRN ×2 (02:20→20:24)
[2018-09-03] MEDS: Nicotine 21 MG PATCH.TD24 TD SCH (08:02)
[2018-09-03] MEDS: chlorproMAZINE 25 MG TABLET PO SCH ×2 (08:03→20:24)
[2018-09-03] MEDS: clonazePAM 1 MG TABLET PO SCH ×3 (08:03→20:24)
[2018-09-03] MEDS: Gabapentin 300 MG CAPSULE PO SCH ×2 (08:04→15:11)
--- NOTE | 2018-09-03 12:01 | Psychiatry Progress Note ---
Date of Encounter: 09/03/18 Time of Encounter: 11:29 Subjective Interval history: Patient seen today , case d/w treatment team , remains delusional , calling people and cps and , on phone mostly angry why not discharged as her mission is getting late , she is still intrusive but is redirectable now and has not required any prn today. continue close monitoring. Review of Systems Psychiatric: Reports: depression, anxiety, abnormal sleep pattern, change in appetite, auditory hallucinations, visual hallucinations, difficulty concentrating, irritability, mood swings, panic attacks Results - Vital Signs Vital Signs: Temp Pulse Resp BP Pulse Ox 97.8 F 112 18 108/67 98 09/03/18 08:59 09/03/18 08:59 09/03/18 08:59 09/03/18 08:59 08/31/18 08:18 Assessment and Plan (1) Acute psychosis Current visit: Yes Status: Acute Risks, benefits, side effects, alternatives discussed w/pt: Yes Patient agreeable to treatment: Yes (2) Bipolar affective, manic, severe w/ psych Current visit: Yes Status: Acute Risks, benefits, side effects, alternatives discussed w/pt: Yes Patient agreeable to treatment: Yes (3) Cannabis abuse Current visit: Yes Status: Acute Risks, benefits, side effects, alternatives discussed w/pt: Yes Patient agreeable to treatment: Yes (4) Methamphetamine abuse Current visit: Yes Status: Chronic Risks, benefits, side effects, alternatives discussed w/pt: Yes Patient agreeable to treatment: Yes Consult Discharge Plan - Plan Referrals: NONE,PCP [Primary Care Provider] - Psychiatry Exam - Constitutional Vitals: Temp Pulse Resp BP Pulse Ox 97.8 F 112 18 108/67 98 09/03/18 08:59 09/03/18 08:59 09/03/18 08:59 09/03/18 08:59 08/31/18 08:18 General appearance: thin - Musculoskeletal Gait: normal Station: other Strength & Tone: normal for patient - Psychiatric Patient Orientation: Yes Person, Yes Time, Yes Place Level of alertness: Alert Behavior: cooperative, distractible, talkative Psychomotor activity: Normal Eye Contact: Maintains Eye Contact Mood Description: Euphoric, Expansive Affect description: congruent with mood Speech Volume: Normal Speech pattern: excessive Language & Vocabulary: consistent with education Thought Process: Circumstantial, Tangential, Racing Thought Content: Yes Preoccupation, Yes Paranoid delusion, Yes Yazidi delusion, Yes Grandiose delusion Perceptual Disturbances: Yes Auditory hallucinations Attention Span Ability: Unable to Sustain Attention Memory Description: Grossly Intact Fund of knowledge: Yes average Intelligence Estimate: Average Judgment: Poor Insight: None
[2018-09-03] MEDS: Gabapentin 400 MG CAPSULE PO SCH ×2 (15:33→20:24)
[2018-09-03] MEDS: traMADol 50 MG TABLET PO PRN ×2 (15:33→21:30)
[2018-09-03] MEDS: Mag Hydrox/Al Hydrox/Simeth 30 ML UDC PO PRN (23:45)
[2018-09-04] MEDS: Ibuprofen 400 MG TABLET PO PRN ×2 (02:23→20:27)
[2018-09-04] MEDS: chlorproMAZINE 25 MG TABLET PO SCH ×2 (08:07→20:26)
[2018-09-04] MEDS: Gabapentin 400 MG CAPSULE PO SCH ×3 (08:08→20:27)
[2018-09-04] MEDS: clonazePAM 1 MG TABLET PO SCH ×3 (08:08→20:27)
[2018-09-04] MEDS: Nicotine 21 MG PATCH.TD24 TD SCH (08:09)
[2018-09-04] MEDS: traMADol 50 MG TABLET PO PRN ×2 (11:57→18:14)
--- NOTE | 2018-09-04 12:57 | Psychiatry Progress Note ---
Date of Encounter: 09/04/18 Time of Encounter: 12:30 Subjective Interval history: Patient seen today , case d/w treatment team. she remains delusional and psychotic. castillo and fixed on being discharged. and klonopin not working and wants me to increase the dose , she is aware of probate today, states i will be upset if they decide to keep me here. she does not believe she needs treatment. god told me i will at age 41 and wants to take her daughter to be a bruno. continue rx plan . constipation relieved and she has been on stool softener . Review of Systems Psychiatric: Reports: depression, anxiety, abnormal sleep pattern, change in appetite, auditory hallucinations, visual hallucinations, difficulty concentrating, irritability, mood swings, panic attacks Results - Vital Signs Vital Signs: Temp Pulse Resp BP Pulse Ox 97.7 F 94 16 115/69 98 09/04/18 09:00 09/04/18 09:00 09/04/18 09:00 09/04/18 09:00 08/31/18 08:18 Assessment and Plan (1) Acute psychosis Current visit: Yes Status: Acute Risks, benefits, side effects, alternatives discussed w/pt: Yes Patient agreeable to treatment: Yes (2) Bipolar affective, manic, severe w/ psych Current visit: Yes Status: Acute Risks, benefits, side effects, alternatives discussed w/pt: Yes Patient agreeable to treatment: Yes (3) Cannabis abuse Current visit: Yes Status: Acute Risks, benefits, side effects, alternatives discussed w/pt: Yes Patient agreeable to treatment: Yes (4) Methamphetamine abuse Current visit: Yes Status: Chronic Risks, benefits, side effects, alternatives discussed w/pt: Yes Patient agreeable to treatment: Yes Consult Discharge Plan - Plan Referrals: NONE,PCP [Primary Care Provider] - Psychiatry Exam - Constitutional Vitals: Temp Pulse Resp BP Pulse Ox 97.7 F 94 16 115/69 98 09/04/18 09:00 09/04/18 09:00 09/04/18 09:00 09/04/18 09:00 08/31/18 08:18 General appearance: average - Musculoskeletal Gait: normal Station: other Strength & Tone: normal for patient - Psychiatric Patient Orientation: Yes Person, Yes Time, Yes Place Level of alertness: Alert Behavior: cooperative, distractible, talkative Psychomotor activity: Normal Eye Contact: Maintains Eye Contact Mood Description: Elevated, Euphoric, Labile Affect description: labile Speech Volume: Normal Speech pattern: excessive, pressured Language & Vocabulary: consistent with education Thought Process: Circumstantial, Tangential, Disorganized Thought Content: Yes Preoccupation, Yes Hindu delusion, Yes Grandiose delusion Perceptual Disturbances: Yes Auditory hallucinations, Yes Visual hallucinations Memory Description: Grossly Intact Patient Reliability: Reliable Historian Fund of knowledge: Yes average Intelligence Estimate: Average Judgment: Poor Insight: None
[2018-09-04] MEDS: *HR* LORazepam 1 MG TABLET PO PRN (13:49)
[2018-09-04] MEDS: hydrOXYzine pamoate 25 MG CAPSULE PO PRN (18:14)
[2018-09-04] MEDS: OLANZapine 5 MG TAB.RAPDIS PO PRN (20:27)
[2018-09-04] MEDS: Mag Hydrox/Al Hydrox/Simeth 30 ML UDC PO PRN (20:28)
[2018-09-05] MEDS: Nicotine 21 MG PATCH.TD24 TD SCH (08:38)
[2018-09-05] MEDS: Gabapentin 400 MG CAPSULE PO SCH ×3 (08:38→20:51)
[2018-09-05] MEDS: clonazePAM 1 MG TABLET PO SCH (08:39)
[2018-09-05] MEDS: traMADol 50 MG TABLET PO PRN ×2 (08:39→20:56)
[2018-09-05] MEDS: chlorproMAZINE 25 MG TABLET PO SCH ×2 (08:40→14:43)
--- NOTE | 2018-09-05 10:12 | Psychiatry Progress Note ---
Date of Encounter: 09/05/18 Time of Encounter: 09:50 Subjective Interval history: Patient seen today ,case d/w treatment plan. She slept whole night , she took zydis. Probate hearing done and she has refused some of her medication. 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 she remains delusional , poor insight and judgement. she at present is homeless but believes sebastian has brand new house left by her aunt , does not know where. SHE is on 2 antipsychotic , invega and thorazine , she is refusing invega , also has refused thorazine , at times she will take which has helped her to be calm and not agitated. she was given klonopin as she madan take only klonopin , but as now court order will decrease klonopin and better to give lorazepam as it is better for people with hepatic impairement , she has h/o hepatitis A. She also was for this reason given gabapentin , at present showing some improvement in her agitation but remains grandiose and psychotic. she is c/o sedation with thorazine , will give 50 mg bid and 100 mg hs. continue close monitoring . Review of Systems Psychiatric: Reports: depression, anxiety, abnormal sleep pattern, change in appetite, auditory hallucinations, visual hallucinations, difficulty concentrating, irritability, mood swings, panic attacks Results - Vital Signs Vital Signs: Temp Pulse Resp BP Pulse Ox 97.6 F 89 20 118/78 98 09/05/18 09:54 09/05/18 09:54 09/05/18 09:54 09/05/18 09:54 08/31/18 08:18 Assessment and Plan (1) Acute psychosis Current visit: Yes Status: Acute Risks, benefits, side effects, alternatives discussed w/pt: Yes Patient agreeable to treatment: Yes (2) Bipolar affective, manic, severe w/ psych Current visit: Yes Status: Acute Risks, benefits, side effects, alternatives discussed w/pt: Yes Patient agreeable to treatment: Yes (3) Cannabis abuse Current visit: Yes Status: Acute Risks, benefits, side effects, alternatives discussed w/pt: Yes Patient agreeable to treatment: Yes (4) Methamphetamine abuse Current visit: Yes Status: Chronic Risks, benefits, side effects, alternatives discussed w/pt: Yes Patient agreeable to treatment: Yes Consult Discharge Plan - Plan Referrals: NONE,PCP [Primary Care Provider] - Psychiatry Exam - Constitutional Vitals: Temp Pulse Resp BP Pulse Ox 97.6 F 89 20 118/78 98 09/05/18 09:54 09/05/18 09:54 09/05/18 09:54 09/05/18 09:54 08/31/18 08:18 General appearance: age & developmentally appropriate - Musculoskeletal Gait: normal Station: other Strength & Tone: normal for patient - Psychiatric Patient Orientation: Yes Person, Yes Time, Yes Place Level of alertness: Alert Behavior: cooperative, talkative Psychomotor activity: Normal Eye Contact: Maintains Eye Contact Mood Description: Elevated Affect description: congruent with mood Speech Volume: Normal Speech pattern: excessive Language & Vocabulary: consistent with education Thought Process: Circumstantial Thought Content: Yes Preoccupation, Yes Presybeterian delusion, Yes Grandiose delusion Perceptual Disturbances: Yes Auditory hallucinations Attention Span Ability: Unable to Sustain Attention Memory Description: Grossly Intact Fund of knowledge: Yes average Intelligence Estimate: Average Judgment: Poor Insight: Minimal
[2018-09-05] MEDS: clonazePAM 0.5 MG TABLET PO SCH ×2 (14:44→20:51)
[2018-09-05] MEDS: Ibuprofen 400 MG TABLET PO PRN ×2 (14:44→20:55)
[2018-09-05] MEDS: *HR* LORazepam 2 MG/ML VIAL IM PRN (15:35)
[2018-09-05] MEDS: Haloperidol Lactate 5 MG/ML VIAL IM PRN (15:36)
[2018-09-05] MEDS: Mag Hydrox/Al Hydrox/Simeth 30 ML UDC PO PRN (20:49)
[2018-09-05] MEDS: OLANZapine 5 MG TAB.RAPDIS PO PRN (20:55)
[2018-09-05] MEDS ORDERED: chlorproMAZINE 25 MG TABLET PO SCH (21:00)
[2018-09-06] MEDS: traMADol 50 MG TABLET PO PRN ×2 (05:34→17:16)
[2018-09-06] MEDS: clonazePAM 0.5 MG TABLET PO SCH ×3 (08:53→21:14)
[2018-09-06] MEDS: Nicotine 21 MG PATCH.TD24 TD SCH (08:53)
[2018-09-06] MEDS: chlorproMAZINE 25 MG TABLET PO SCH ×3 (08:54→21:15)
[2018-09-06] MEDS: Gabapentin 400 MG CAPSULE PO SCH ×3 (08:54→21:14)
--- NOTE | 2018-09-06 09:26 | Psychiatry Progress Note ---
Date of Encounter: 09/06/18 Time of Encounter: 09:15 Subjective Interval history: Not stable. Rambling about marrying God, going to [place] to be a star, needing to save the world, etc. Immediately started screaming when this play writer told her she was not ready to go. Claimed her grandmother is dying and she needs to be there because her grandmother is a witch and she needs to absorb her pack. Receiving prns daily and nothing is touching her. Currently screaming about the world burning. Recently started on Thorazine with some benefit but client started refusing it when dose was increased. Just got an order for forced meds. Will need to implement this today. Review of Systems Constitutional: Denies: fever, chills, weakness, weight change Eyes: Denies: eye pain, vision change Ears, Nose, Throat: Denies: ear pain, throat pain, dental pain, hearing loss, congestion Cardiovascular: Denies: chest pain, palpitations, dyspnea on exertion Respiratory: Denies: cough, dyspnea, wheezes Gastrointestinal: Denies: abdominal pain, nausea, vomiting, diarrhea, constipation Musculoskeletal: Denies: joint swelling, joint pain Neurological: Denies: headache, weakness, numbness, memory loss Psychiatric: Reports: depression, anxiety, abnormal sleep pattern, change in appetite, auditory hallucinations, visual hallucinations, difficulty concentrating, irritability, mood swings, panic attacks Results - Vital Signs Vital Signs: Temp Pulse Resp BP Pulse Ox 98.6 F 128 16 126/80 98 09/05/18 21:00 09/05/18 21:00 09/05/18 21:00 09/05/18 21:00 08/31/18 08:18 Assessment and Plan (1) Bipolar affective, manic, severe w/ psych Current visit: Yes Status: Acute Plan: Continue hospitalization, Close observation, Suicide Precautions per unit protocol, Encourage participation in unit milieu, Group Therapy, Monitor sleep, Monitor appetite Risks, benefits, side effects, alternatives discussed w/pt: Yes Patient agreeable to treatment: Yes (2) Methamphetamine abuse Current visit: Yes Status: Chronic Plan: Continue hospitalization, Close observation, Suicide Precautions per unit protocol, Encourage participation in unit milieu, Group Therapy, Monitor sleep, Monitor appetite Risks, benefits, side effects, alternatives discussed w/pt: Yes Patient agreeable to treatment: Yes Consult Discharge Plan - Plan Referrals: NONE,PCP [Primary Care Provider] - Psychiatry Exam - Constitutional Vitals: Temp Pulse Resp BP Pulse Ox 98.6 F 128 16 126/80 98 09/05/18 21:00 09/05/18 21:00 09/05/18 21:00 09/05/18 21:00 08/31/18 08:18 General appearance: age & developmentally appropriate - Musculoskeletal Gait: normal Station: other Strength & Tone: normal for patient - Psychiatric Patient Orientation: Yes Person, Yes Time, Yes Place Level of alertness: Alert Behavior: agitated, aggressive, impulsive, talkative Psychomotor activity: Increased Eye Contact: Maintains Eye Contact Mood Description: Labile Affect description: congruent with mood Speech Volume: Loud Speech pattern: pressured Language & Vocabulary: consistent with education Thought Process: Flight of Ideas Thought Content: No Suicidal ideation, No Homicidal ideation, Yes Overt delusions Perceptual Disturbances: No Auditory hallucinations, No Visual hallucinations Attention Span Ability: Unable to Focus, Unable to Sustain Attention Memory Description: Grossly Intact Patient Reliability: Not Reliable Historian Fund of knowledge: Yes abstraction ability, Yes aware of current events Intelligence Estimate: Average Judgment: Poor Insight: None
[2018-09-06] MEDS ORDERED: ChlorproMAZINE 25 MG/ML AMPUL IM PRN (09:34)
[2018-09-06] MEDS ORDERED: *HR* LORazepam 1 MG TABLET PO ONE (09:45)
[2018-09-06] MEDS: OLANZapine 5 MG TAB.RAPDIS PO PRN (21:14)
[2018-09-06] MEDS: Ibuprofen 400 MG TABLET PO PRN (21:15)
[2018-09-06] MEDS: hydrOXYzine pamoate 25 MG CAPSULE PO PRN (21:15)
[2018-09-06] MEDS: Mag Hydrox/Al Hydrox/Simeth 30 ML UDC PO PRN (21:18)
[2018-09-06] MEDS: Preparation H Ointment 30 GM TUBE RC PRN (23:22)
[2018-09-07] MEDS: traMADol 50 MG TABLET PO PRN (03:12)
[2018-09-07] MEDS: Nicotine 21 MG PATCH.TD24 TD SCH (08:41)
[2018-09-07] MEDS: clonazePAM 0.5 MG TABLET PO SCH ×3 (08:42→20:32)
[2018-09-07] MEDS: Gabapentin 400 MG CAPSULE PO SCH ×3 (08:42→20:25)
[2018-09-07] MEDS: chlorproMAZINE 25 MG TABLET PO SCH ×3 (08:43→20:25)
--- NOTE | 2018-09-07 09:11 | Psychiatry Progress Note ---
Date of Encounter: 09/07/18 Time of Encounter: 09:08 Subjective Interval history: Looks better today. Med changes seem to be helping. Still labile and delusional but much calmer. No outbursts since the one with this fiction and nonfiction writer prose yesterday. Cooperated with staff last night and even took a nap yesterday. Demanding more Klonopin but otherwise cooperative with meds. Still thinks she needs to save the world. Gets riled up over this delusion but more in control and able to bring herself back down without needing emergency meds. Review of Systems Constitutional: Denies: fever, chills, weakness, weight change Eyes: Denies: eye pain, vision change Ears, Nose, Throat: Denies: ear pain, throat pain, dental pain, hearing loss, congestion Cardiovascular: Denies: chest pain, palpitations, dyspnea on exertion Respiratory: Denies: cough, dyspnea, wheezes Gastrointestinal: Denies: abdominal pain, nausea, vomiting, diarrhea, constipation Musculoskeletal: Denies: joint swelling, joint pain Neurological: Denies: headache, weakness, numbness, memory loss Psychiatric: Reports: depression, anxiety, abnormal sleep pattern, change in appetite, auditory hallucinations, visual hallucinations, difficulty concentrating, irritability, mood swings, panic attacks Results - Vital Signs Vital Signs: Temp Pulse Resp BP Pulse Ox 97.6 F 98 18 118/77 98 09/06/18 20:12 09/06/18 20:12 09/06/18 20:12 09/06/18 20:12 08/31/18 08:18 Assessment and Plan (1) Bipolar affective, manic, severe w/ psych Current visit: Yes Status: Acute Plan: Continue hospitalization, Close observation, Suicide Precautions per unit protocol, Encourage participation in unit milieu, Group Therapy, Monitor sleep, Monitor appetite Risks, benefits, side effects, alternatives discussed w/pt: Yes Patient agreeable to treatment: Yes (2) Methamphetamine abuse Current visit: Yes Status: Chronic Plan: Continue hospitalization, Close observation, Suicide Precautions per unit protocol, Encourage participation in unit milieu, Group Therapy, Monitor sleep, Monitor appetite Risks, benefits, side effects, alternatives discussed w/pt: Yes Patient agreeable to treatment: Yes Consult Discharge Plan - Plan Referrals: NONE,PCP [Primary Care Provider] - Psychiatry Exam - Constitutional Vitals: Temp Pulse Resp BP Pulse Ox 97.6 F 98 18 118/77 98 09/06/18 20:12 09/06/18 20:12 09/06/18 20:12 09/06/18 20:12 08/31/18 08:18 General appearance: age & developmentally appropriate, well-groomed, well- nourished - Musculoskeletal Gait: normal Station: relaxed Strength & Tone: normal for patient - Psychiatric Patient Orientation: Yes Person, Yes Time, Yes Place Level of alertness: Alert Behavior: agitated Psychomotor activity: Normal Eye Contact: Maintains Eye Contact Mood Description: Angry Affect description: labile Speech Volume: Normal Speech pattern: normal rate, normal rhythm, normal tone, fluent, spontaneous Language & Vocabulary: consistent with education Thought Process: Tangential Thought Content: No Suicidal ideation, No Homicidal ideation, Yes Overt delusions Perceptual Disturbances: No Auditory hallucinations, No Visual hallucinations Attention Span Ability: Capable of Focused Attention Memory Description: Grossly Intact Patient Reliability: Not Reliable Historian Fund of knowledge: Yes abstraction ability, Yes aware of current events Intelligence Estimate: Average Judgment: Limited Insight: Minimal
[2018-09-07] MEDS: hydrOXYzine pamoate 25 MG CAPSULE PO PRN ×2 (11:18→20:32)
[2018-09-07] MEDS: Ibuprofen 400 MG TABLET PO PRN (20:29)
[2018-09-07] MEDS: OLANZapine 5 MG TAB.RAPDIS PO PRN (20:32)
[2018-09-07] MEDS: Mag Hydrox/Al Hydrox/Simeth 30 ML UDC PO PRN (20:32)
[2018-09-08] MEDS: traMADol 50 MG TABLET PO PRN ×2 (00:33→21:06)
[2018-09-08] MEDS: Ibuprofen 400 MG TABLET PO PRN ×2 (07:39→21:06)
[2018-09-08] MEDS: chlorproMAZINE 25 MG TABLET PO SCH (08:13)
[2018-09-08] MEDS: Gabapentin 400 MG CAPSULE PO SCH ×3 (08:13→21:06)
[2018-09-08] MEDS: clonazePAM 0.5 MG TABLET PO SCH ×3 (08:14→21:06)
[2018-09-08] MEDS: Nicotine 21 MG PATCH.TD24 TD SCH (08:14)
[2018-09-08] MEDS: hydrOXYzine pamoate 25 MG CAPSULE PO PRN ×2 (13:31→21:07)
--- NOTE | 2018-09-08 14:09 | Psychiatry Progress Note ---
Date of Encounter: 09/08/18 Time of Encounter: 14:00 Subjective Interval history: D the patient is a 33-year-old white female. Chief complaint: I got a phone call from my grandmother. She wants me to come home. I want to go home I have been here too long History of present illness. The patient still has features of michelle she is now more directable she still mildly intrusive and she remains delusional. The plan is for her to have respite and [facility]. However the patient is uncontrolled medicine. The patient lost custody of her daughter and is very upset with children services. This patient exhibits the features of distractibility decreased need for sleep, grandiosity with delusions of grandeur, flight of ideas excessive intrusive activities, excessive speech with loose and find [place] statements. And impulsiveness and thoughtlessness. The patient also has some catholic context saying that God wants to her and the Holy Spirit. Will dwell inside her This patient has required when necessary medicines because of demands to go home. Today she was very upset at the possibility of not going home. I presented the patient with a variety of options. Now she does not want to take regularly scheduled Thorazine but is willing to take olanzapine 15 mg per day she does not want to take lithium. But she is willing to take apparent. I will start with 3 mg. The patient cannot recall being on Abilify. The patient wanted to start back on oxcarbazepine. The patient has been on Klonopin 2 mg 3 times a day but this was recently reduced Trileptal was used on an outpatient basis but it is hard to say. The patient has liver disease and reports that she has hepatitis A virus and hepatitis C virus he reports that she seen a liver specialist at [facility]. The patient reports that she was followed at [facility]. At age 18 she was being treated for PTSD and treated primarily on an outpatient basis. Sometime after age 30 she began using meth amphetamine. She used IV meth and would use it most every day. Patient was at [facility] to get rehabilitation. She has been on Suboxone in the past. Review of Systems Psychiatric: Reports: depression, anxiety, abnormal sleep pattern, change in appetite, auditory hallucinations, visual hallucinations, difficulty concentrating, irritability, mood swings, panic attacks Results - Vital Signs Vital Signs: Temp Pulse Resp BP Pulse Ox 98.2 F 99 18 130/73 98 09/08/18 08:34 09/08/18 08:34 09/08/18 08:34 09/08/18 08:34 08/31/18 08:18 Assessment and Plan (1) Bipolar affective, manic, severe w/ psych Current visit: Yes Status: Acute Plan: Continue hospitalization, Suicide Precautions per unit protocol, Encourage participation in unit milieu, Group Therapy, Monitor sleep, Monitor appetite, Secure weapons Risks, benefits, side effects, alternatives discussed w/pt: Yes Patient agreeable to treatment: Yes (2) Cannabis abuse Current visit: Yes Status: Acute Plan: Continue hospitalization Risks, benefits, side effects, alternatives discussed w/pt: Yes Patient agreeable to treatment: Yes (3) 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 Current visit: Yes Status: Acute Plan: Monitor sleep, Monitor appetite Risks, benefits, side effects, alternatives discussed w/pt: Yes Patient agreeable to treatment: Yes Consult Discharge Plan - Plan Referrals: NONE,PCP [Primary Care Provider] - Psychiatry Exam - Constitutional Vitals: Temp Pulse Resp BP Pulse Ox 98.2 F 99 18 130/73 98 09/08/18 08:34 09/08/18 08:34 09/08/18 08:34 09/08/18 08:34 08/31/18 08:18 General appearance: age & developmentally appropriate, average - Musculoskeletal Gait: brisk Station: relaxed Strength & Tone: normal for patient - Psychiatric Patient Orientation: Yes Person, Yes Time, Yes Place, Yes Circumstance Level of alertness: Alert Behavior: restless, impulsive, talkative Psychomotor activity: Increased Eye Contact: Maintains Eye Contact Mood Description: Angry, Euphoric, Irritable Affect description: congruent with mood Speech Volume: Loud Speech pattern: inappropriate to situation, excessive, pressured Language & Vocabulary: consistent with education Thought Process: Loose Associations, Tangential, Flight of Ideas Thought Content: Yes Orthodoxy delusion, Yes Grandiose delusion Perceptual Disturbances: Yes Illusions Attention Span Ability: Unable to Sustain Attention Memory Description: Grossly Intact Fund of knowledge: Yes below average Intelligence Estimate: Average Judgment: Limited Insight: Minimal
[2018-09-08] MEDS: Simethicone 80 MG TAB.CHEW PO SCH ×2 (15:50→21:05)
[2018-09-08] MEDS: OXcarbazepine 150 MG TABLET PO SCH (21:07)
[2018-09-08] MEDS: OLANZapine 10 MG TAB.RAPDIS PO SCH (21:07)
[2018-09-08] MEDS: Mag Hydrox/Al Hydrox/Simeth 30 ML UDC PO PRN (21:07)
[2018-09-09] MEDS: Ibuprofen 400 MG TABLET PO PRN (05:24)
[2018-09-09] MEDS: OLANZapine 5 MG TAB.RAPDIS PO PRN ×2 (06:16→16:19)
[2018-09-09] MEDS: Nicotine 21 MG PATCH.TD24 TD SCH (08:27)
[2018-09-09] MEDS: Gabapentin 400 MG CAPSULE PO SCH ×3 (08:28→20:28)
[2018-09-09] MEDS: OXcarbazepine 150 MG TABLET PO SCH ×3 (08:28→20:28)
[2018-09-09] MEDS: Simethicone 80 MG TAB.CHEW PO SCH ×3 (08:28→20:29)
[2018-09-09] MEDS ORDERED: clonazePAM 1 MG TABLET PO SCH (09:00)
--- NOTE | 2018-09-09 11:56 | Psychiatry Progress Note ---
Date of Encounter: 09/09/18 Time of Encounter: 11:00 Subjective Interval history: ID the patient is a 33-year-old white female. Chief complaint I am on a mission from God. God is in a box by the emergency room. It is like [place]'s box. History of present illness: The patient has been loose disorganized delusional. Today she has grandiose delusions. These are mormon delusions. She is hyperactive in singing. She is easily distracted hyper attentive and continues to meet the criteria for michelle DIG F AST and furthermore she has delusions and is not clear that she has hallucinations. When asked about her drug use she indicated that she did large amounts of methamphetamine for a long period of time. Today she is asking to leave is willing to take medicines as directed. This includes paliperidone, oxcarbazepine, clonazepam, Zyprexa, and gabapentin. In spite of multiple medicines patient continues to exhibit the features of michelle and psychosis. Nonetheless today when the discharge was discussed she did not become upset and agitated requiring when necessary medicine. This suggests some improvement. Review of Systems Psychiatric: Reports: depression, anxiety, abnormal sleep pattern, change in appetite, auditory hallucinations, visual hallucinations, difficulty concentrating, irritability, mood swings, panic attacks Results - Vital Signs Vital Signs: Temp Pulse Resp BP Pulse Ox 98.2 F 86 18 125/84 98 09/09/18 08:33 09/09/18 08:33 09/09/18 08:33 09/09/18 08:33 08/31/18 08:18 Assessment and Plan (1) Bipolar affective, manic, severe w/ psych Current visit: Yes Status: Acute Plan: Continue hospitalization, Close observation, Encourage participation in unit milieu, Group Therapy, Monitor sleep, Secure weapons Risks, benefits, side effects, alternatives discussed w/pt: Yes Patient agreeable to treatment : Yes (2) Cannabis abuse Current visit: Yes Status: Acute Plan: Continue hospitalization, Family/Supportive other meeting Risks, benefits, side effects, alternatives discussed w/pt: Yes Patient agreeable to treatment: Yes (3) 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 Current visit: Yes Status: Acute Plan: Continue hospitalization, Close observation, Monitor sleep, Monitor appetite, Other Risks, benefits, side effects, alternatives discussed w/pt: Yes Patient agreeable to treatment: Yes Consult Discharge Plan - Plan Referrals: NONE,PCP [Primary Care Provider] - Psychiatry Exam - Constitutional Vitals: Temp Pulse Resp BP Pulse Ox 98.2 F 86 18 125/84 98 09/09/18 08:33 09/09/18 08:33 09/09/18 08:33 09/09/18 08:33 08/31/18 08:18 General appearance: age & developmentally appropriate, well-groomed, well- nourished, average - Musculoskeletal Gait: normal, brisk Station: relaxed Strength & Tone: normal for patient - Psychiatric Patient Orientation: Yes Person, Yes Time, Yes Place Level of alertness: Alert Behavior: cooperative, impulsive, talkative, dramatic Psychomotor activity: Normal Eye Contact: Prolonged Contact Mood Description: Euphoric, Expansive Affect description: labile Speech Volume: Loud, Excessive Variation Speech pattern: normal rate, normal rhythm, normal tone, fluent, spontaneous, rambling, excessive Language & Vocabulary: consistent with education Thought Process: Linear, Goal Oriented, Loose Associations, Tangential, Thought Blocking Thought Content: No Suicidal ideation, No Homicidal ideation, No Overt delusions , Yes Ideas of reference, Yes Taoism delusion, Yes Grandiose delusion Perceptual Disturbances: No Auditory hallucinations, No Visual hallucinations Attention Span Ability: Unable to Sustain Attention Memory Description: Grossly Intact Patient Reliability: Not Reliable Historian Fund of knowledge: Yes abstraction ability, Yes average Intelligence Estimate: Average Judgment: Limited Insight: Minimal
[2018-09-09] MEDS: hydrOXYzine pamoate 25 MG CAPSULE PO PRN ×2 (12:40→17:39)
[2018-09-09] MEDS: clonazePAM 1 MG TABLET PO SCH ×2 (14:16→20:28)
[2018-09-09] MEDS: OLANZapine 10 MG TAB.RAPDIS PO SCH (20:28)
[2018-09-09] MEDS: traMADol 50 MG TABLET PO PRN (20:29)
[2018-09-10] MEDS: Simethicone 80 MG TAB.CHEW PO SCH ×3 (08:23→20:52)
[2018-09-10] MEDS: OXcarbazepine 150 MG TABLET PO SCH ×2 (08:24→20:53)
[2018-09-10] MEDS: clonazePAM 1 MG TABLET PO SCH ×3 (08:24→20:56)
[2018-09-10] MEDS: Gabapentin 400 MG CAPSULE PO SCH ×3 (08:25→20:53)
[2018-09-10] MEDS: Nicotine 21 MG PATCH.TD24 TD SCH (08:25)
[2018-09-10 11:36] LABS: Alanine Aminotransferase 357 Units/L (7-52); Albumin 4.3 g/dL (3.5-5.7); Albumin/Globulin Ratio 1.3 (1.1-2.2); Alkaline Phosphatase 105 Units/L (34-104); Aspartate Amino Transferase 153 Units/L (13-39); BUN/Creatinine Ratio 26 (6-26); Bilirubin,Total 0.8 mg/dL (0.3-1.0); Blood Urea Nitrogen 23 mg/dL (6-20); Calcium 9.6 mg/dL (8.6-10.3); Carbon Dioxide 23 mEq/L (23-29); Chloride 101 mEq/L (98-107); Globulin 3.3 g/dL (2.4-3.5); Glucose 91 mg/dL (70-105); Osmolality,Calculated 281 (280-300); Potassium 4.3 mEq/L (3.5-5.1); Sodium 134 mEq/L (136-145); Total Protein 7.6 g/dL (6.4-8.9); eGFR For Non-African Americans > 60 (> 60)
--- NOTE | 2018-09-10 12:05 | Psychiatry Progress Note ---
Date of Encounter: 09/10/18 Time of Encounter: 11:45 Subjective Interval history: ID the patient is a 33-year-old white female. Chief complaint: You need to let me go today there are people outside in that box. History of present illness: The patient has continued to escalate with her mood. She is irritable and demanding. She indicates that she wants to leave. Yesterday she required when necessary medicines. She is failed to improve with multiple medicines but is able to tolerate increased dose of clonazepam oxcarbazepine and initial doses of paliperidone. She is willing to take the paliperidone long-acting injection.. She is willing to try medicine Vrylar 3 mg . Side effects were discussed with the patient. Review of Systems Psychiatric: Reports: depression, anxiety, abnormal sleep pattern, change in appetite, auditory hallucinations, visual hallucinations, difficulty concentrating, irritability, mood swings, panic attacks Results - Vital Signs Vital Signs: Temp Pulse Resp BP Pulse Ox 98 F 87 18 115/77 98 09/10/18 09:00 09/10/18 09:00 09/10/18 09:00 09/10/18 09:00 08/31/18 08:18 - Labs Labs: Laboratory Results - last 24 hr 09/10/18 09:53 Sodium 134 L Potassium 4.3 Chloride 101 Carbon Dioxide 23 BUN 23 H Creatinine 0.88 Est GFR ( Amer) > 60 Est GFR (Non-Af Amer) > 60 BUN/Creatinine Ratio 26 Glucose 91 Calculated Osmolality 281 Calcium 9.6 Total Bilirubin 0.8 AST 153 H ALT 357 H Alkaline Phosphatase 105 H Serum Total Protein 7.6 Albumin 4.3 Globulin 3.3 Albumin/Globulin Ratio 1.3 Assessment and Plan (1) Bipolar affective, manic, severe w/ psych Current visit: Yes Status: Acute Plan: Continue hospitalization, Close observation, Suicide Precautions per unit protocol, Encourage participation in unit milieu, Group Therapy, Monitor sleep, Monitor appetite Risks, benefits, side effects, alternatives discussed w/pt: Yes Patient agreeable to treatment: Yes (2) Cannabis abuse Current visit: Yes Status: Acute Plan: Monitor appetite Risks, benefits, side effects, alternatives discussed w /pt: Yes Patient agreeable to treatment: Yes (3) 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 Current visit: Yes Status: Acute Plan: Continue hospitalization, Close observation, Suicide Precautions per unit protocol, Monitor appetite, Secure weapons Risks, benefits, side effects, alternatives discussed w/pt: Yes Patient agreeable to treatment: Yes Consult Discharge Plan - Plan Referrals: NONE,PCP [Primary Care Provider] - Psychiatry Exam - Constitutional Vitals: Temp Pulse Resp BP Pulse Ox 98 F 87 18 115/77 98 09/10/18 09:00 09/10/18 09:00 09/10/18 09:00 09/10/18 09:00 08/31/18 08:18 General appearance: age & developmentally appropriate, well-groomed, well- nourished - Musculoskeletal Gait: normal Station: relaxed Strength & Tone: normal for patient - Psychiatric Patient Orientation: Yes Person, Yes Time, Yes Place Level of alertness: Alert Behavior: guarded, distractible, impulsive, dramatic Psychomotor activity: Increased Eye Contact: Maintains Eye Contact Mood Description: Euphoric, Expansive, Irritable Affect description: congruent with mood, full range, inappropriate to situation Speech Volume: Loud Speech pattern: normal rate, normal rhythm, normal tone, fluent, spontaneous Language & Vocabulary: consistent with education Thought Process: Linear, Goal Oriented, Tangential, Racing Thought Content: No Suicidal ideation, No Homicidal ideation, No Overt delusions , Yes Ideas of reference, Yes Restorationist delusion, Yes Grandiose delusion Perceptual Disturbances: No Auditory hallucinations, No Visual hallucinations Attention Span Ability: Unable to Sustain Attention Memory Description: Grossly Intact Patient Reliability: Reliable Historian Fund of knowledge: Yes average Intelligence Estimate: Average Judgment: Limited Insight: Minimal
[2018-09-10] MEDS: Ibuprofen 400 MG TABLET PO PRN (12:16)
[2018-09-10] MEDS: OLANZapine 5 MG TAB.RAPDIS PO PRN (18:08)
[2018-09-10] MEDS: hydrOXYzine pamoate 25 MG CAPSULE PO PRN (18:08)
[2018-09-10] MEDS: Haloperidol Lactate 5 MG/ML VIAL IM PRN (19:03)
[2018-09-10] MEDS: *HR* LORazepam 2 MG/ML VIAL IM PRN (19:03)
[2018-09-10] MEDS: OLANZapine 10 MG TAB.RAPDIS PO SCH (20:51)
[2018-09-10] MEDS: traMADol 50 MG TABLET PO PRN (20:54)
[2018-09-11] MEDS: Simethicone 80 MG TAB.CHEW PO SCH ×3 (08:03→21:06)
[2018-09-11] MEDS: clonazePAM 1 MG TABLET PO SCH ×3 (08:03→21:06)
[2018-09-11] MEDS: Gabapentin 400 MG CAPSULE PO SCH ×3 (08:03→21:06)
[2018-09-11] MEDS: Nicotine 21 MG PATCH.TD24 TD SCH (08:03)
[2018-09-11] MEDS: OXcarbazepine 150 MG TABLET PO SCH ×2 (08:04→21:05)
--- NOTE | 2018-09-11 10:51 | Psychiatry Progress Note ---
Date of Encounter: 09/11/18 Time of Encounter: 10:50 Subjective Interval history: Result white female. Chief complaint I need to go to [place] to help those children affected by her john Cornelius. There is a box outside and has evil and it and I need to go get. Cannot I be discharged today History of present illness. The patient continues to have manic symptoms. She was able to sleep better last night. Today she says she did not sleep very well. The patient has gained a little bit of weight as she was started on Zyprexa for a few days. She feels that she is on a high dose of Trileptal does not wish to increase it. The patient also had some difficulties with one of the other residents. She received 156 mg of long-acting paliperidone intramuscularly. And a 2:30 for would be given on Saturday of next week. The recommendation is for her to go to respite but the patient seems to indicate that she could not live with family members. The patient wanted to reduce the nicotine replacement from 21-14. The patient I discussed with cariprazine, nor antipsychotic approved for the treatment of bipolar disorder that does not have as much effect on appetite or weight. She was willing to begin a trial of this 3 mg daily at bedtime because this is nonformulary this will be obtained from sample sources that were brought to the hospital will be reviewed by the pharmacy. The patient is insisting on going today when she was reminded that she is under involuntary hospitalization with forced medication. The patient acknowledged a history of noncompliance things that she stopped her medicine in the past. The patient is also acknowledges using methamphetamine in large amounts life underwriter to the development of bipolar disorder. Review of Systems Psychiatric: Reports: depression, anxiety, abnormal sleep pattern, change in appetite, auditory hallucinations, visual hallucinations, difficulty concentrating, irritability, mood swings, panic attacks Results - Vital Signs Vital Signs: Temp Pulse Resp BP Pulse Ox 97.5 F L 137 18 109/65 98 09/11/18 09:00 09/11/18 09:00 09/11/18 09:00 09/11/18 09:00 08/31/18 08:18 - Labs Labs: Laboratory Results - last 24 hr 09/10/18 09:53 Sodium 134 L Potassium 4.3 Chloride 101 Carbon Dioxide 23 BUN 23 H Creatinine 0.88 Est GFR ( Amer) > 60 Est GFR (Non-Af Amer) > 60 BUN/Creatinine Ratio 26 Glucose 91 Calculated Osmolality 281 Calcium 9.6 Total Bilirubin 0.8 AST 153 H ALT 357 H Alkaline Phosphatase 105 H Serum Total Protein 7.6 Albumin 4.3 Globulin 3.3 Albumin/Globulin Ratio 1.3 Assessment and Plan (1) Bipolar affective, manic, severe w/ psych Current visit: Yes Status: Acute Plan: Continue hospitalization, Close observation, Suicide Precautions per unit protocol, Encourage participation in unit milieu, Group Therapy, Monitor sleep, Monitor appetite, Secure weapons Risks, benefits, side effects, alternatives discussed w/pt: Yes Patient agreeable to treatment: Yes (2) Cannabis abuse Current visit: Yes Status: Acute Plan: Continue hospitalization, Close observation, Suicide Precautions per unit protocol, Encourage participation in unit milieu Risks, benefits, side effects , alternatives discussed w/pt: Yes Patient agreeable to treatment: Yes (3) 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 Current visit: Yes Status: Acute Plan: Suicide Precautions per unit protocol, Encourage participation in unit milieu, Group Therapy, Family/Supportive other meeting Risks, benefits, side effects, alternatives discussed w/pt: Yes Patient agreeable to treatment: Yes (4) Patient's noncompliance with other medical treatment and regimen Current visit: Yes Status: Acute Plan: Family/Supportive other meeting, Other Risks, benefits, side effects, alternatives discussed w/pt: Yes Patient agreeable to treatment: Yes Consult Discharge Plan - Plan Referrals: NONE,PCP [Primary Care Provider] - Psychiatry Exam - Constitutional Vitals: Temp Pulse Resp BP Pulse Ox 97.5 F L 137 18 109/65 98 09/11/18 09:00 09/11/18 09:00 09/11/18 09:00 09/11/18 09:00 08/31/18 08:18 General appearance: age & developmentally appropriate, well-groomed, well- nourished - Musculoskeletal Gait: brisk Station: erect Strength & Tone: normal for patient - Psychiatric Patient Orientation: Yes Person, Yes Time, Yes Place, Yes Circumstance Level of alertness: Alert Behavior: aggressive, impulsive, talkative, dramatic Psychomotor activity: Increased Eye Contact: Prolonged Contact Mood Description: Expansive, Irritable Affect description: inappropriate to situation Speech Volume: Loud Speech pattern: normal rate Language & Vocabulary: consistent with education Thought Process: Intact Thought Content: Yes Ideas of reference, Yes Preoccupation, Yes Buddhist delusion, Yes Grandiose delusion, Yes Thought insertion Perceptual Disturbances: Yes Reacting to internal stimuli Attention Span Ability: Unable to Sustain Attention Memory Description: Grossly Intact Patient Reliability: Not Reliable Historian Fund of knowledge: Yes below average Intelligence Estimate: Average Judgment: Limited Insight: Minimal
[2018-09-11] MEDS: hydrOXYzine pamoate 25 MG CAPSULE PO PRN (11:40)
[2018-09-11] MEDS: *HR* LORazepam 2 MG/ML VIAL IM PRN (13:13)
[2018-09-11] MEDS: Mag Hydrox/Al Hydrox/Simeth 30 ML UDC PO PRN (19:17)
[2018-09-11] MEDS: chlorproMAZINE 25 MG TABLET PO SCH (21:06)
[2018-09-11] MEDS: (Cariprazine Hcl [Vraylar] 3 MG) PO SCH (21:13)
[2018-09-12] MEDS: traMADol 50 MG TABLET PO PRN ×2 (03:58→17:09)
[2018-09-12] MEDS: Nicotine 14 MG PATCH.TD24 TD SCH (08:58)
[2018-09-12] MEDS: clonazePAM 1 MG TABLET PO SCH ×3 (08:59→20:23)
[2018-09-12] MEDS: Simethicone 80 MG TAB.CHEW PO SCH ×3 (08:59→20:23)
[2018-09-12] MEDS: Gabapentin 400 MG CAPSULE PO SCH ×3 (08:59→20:23)
[2018-09-12] MEDS: OXcarbazepine 150 MG TABLET PO SCH ×2 (08:59→20:24)
[2018-09-12] MEDS: chlorproMAZINE 25 MG TABLET PO SCH ×2 (10:40→20:24)
--- NOTE | 2018-09-12 10:53 | Psychiatry Progress Note ---
Date of Encounter: 09/12/18 Time of Encounter: 10:45 Subjective Interval history: D the patient is a 33-year-old white female. Chief complaint I need to go out and open that box. I can go home with my mother and see my daughter. Children services called me and they can blankety- blank blank blank. History of present illness. The patient injured her hand yesterday when she struck a wall. Each day that she has and told that she could not leave the facility she has become angry and agitated. I ordered Thorazine yesterday but the patient did not want to take it she was worried about the Thorazine shuffle however today before seeing me she did not take the Thorazine realizing that her discharge on Saturday may be dependent upon nonetheless the patient does not recognize she is under court commitment that she has forced medications before that the plan is for her to go to respite. She continues to insist that she will. Review of Systems Psychiatric: Reports: depression, anxiety, abnormal sleep pattern, change in appetite, auditory hallucinations, visual hallucinations, difficulty concentrating, irritability, mood swings, panic attacks Results - Vital Signs Vital Signs: Temp Pulse Resp BP Pulse Ox 98.1 F 105 18 113/74 98 09/12/18 09:00 09/12/18 09:00 09/12/18 09:00 09/12/18 09:00 08/31/18 08:18 - Impressions ITS Impressions Hand X-Ray 09/11/18 15:28 IMPRESSION: 1. Small calcification adjacent to the proximal 5th metacarpal could represent an avulsion fracture fragment 2. Otherwise no acute bony or joint abnormality D/ / Adryan Georges MD / Adryan Georges MD Interpreting Provider: Adryan Georges MD Assessment and Plan (1) Bipolar affective, manic, severe w/ psych Current visit: Yes Status: Acute Plan: Continue hospitalization, Close observation, Suicide Precautions per unit protocol Risks, benefits, side effects, alternatives discussed w/pt: Yes Patient agreeable to treatment: Yes (2) Cannabis abuse Current visit: Yes Status: Acute Plan: Group Therapy, Monitor appetite Risks, benefits, side effects, alternatives discussed w/pt: Yes Patient agreeable to treatment: Yes (3) 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 Invega Sustenna 234mg dose on 09/16/2018. Next Invega Sustenna 234mg due on 10/14/2018. Referrals: NONE,PCP [Primary Care Provider] - Psychiatry Exam - Constitutional Vitals: Temp Pulse Resp BP Pulse Ox 98.1 F 105 18 113/74 98 09/12/18 09:00 09/12/18 09:00 09/12/18 09:00 09/12/18 09:00 08/31/18 08:18 General appearance: age & developmentally appropriate, disheveled - Musculoskeletal Gait: brisk - Psychiatric Patient Orientation: Yes Person, Yes Time, Yes Place Level of alertness: Alert Behavior: calm, cooperative Eye Contact: Maintains Eye Contact Mood Description: Expansive, Irritable Affect description: euthymic, labile, dysphoric Speech Volume: Normal Speech pattern: normal rate, normal rhythm, normal tone, fluent, spontaneous Language & Vocabulary: consistent with education Thought Process: Linear, Goal Oriented Thought Content: No Suicidal ideation, No Homicidal ideation, No Overt delusions , Yes Ideas of reference, Yes Tenriism delusion, Yes Grandiose delusion Perceptual Disturbances: No Auditory hallucinations, No Visual hallucinations Attention Span Ability: Capable of Sustained Attention Memory Description: Grossly Intact Fund of knowledge: Yes abstraction ability, Yes aware of current events Intelligence Estimate: Average Judgment: Limited Insight: Minimal
[2018-09-12] MEDS: (Cariprazine Hcl [Vraylar] 3 MG) PO SCH (20:22)
[2018-09-12] MEDS: hydrOXYzine pamoate 25 MG CAPSULE PO PRN (20:23)
[2018-09-13] MEDS: Simethicone 80 MG TAB.CHEW PO SCH ×3 (08:59→20:07)
[2018-09-13] MEDS: Nicotine 14 MG PATCH.TD24 TD SCH (09:00)
[2018-09-13] MEDS: traMADol 50 MG TABLET PO PRN (09:01)
[2018-09-13] MEDS: Gabapentin 400 MG CAPSULE PO SCH ×3 (09:02→20:10)
[2018-09-13] MEDS: OXcarbazepine 150 MG TABLET PO SCH ×2 (09:02→20:09)
[2018-09-13] MEDS: clonazePAM 1 MG TABLET PO SCH ×3 (09:02→20:10)
[2018-09-13] MEDS: chlorproMAZINE 25 MG TABLET PO SCH ×2 (09:02→20:13)
--- NOTE | 2018-09-13 13:18 | Psychiatry Progress Note ---
Date of Encounter: 09/13/18 Time of Encounter: 13:15 Subjective Interval history: Patient was discussed with nursing staff. Review progress notes medication and behavior. Patient could not be seen, she was sleeping and could not be awakened up because of her potential for agitation. Patient was observed earlier token loudly to nursing staff and other patients and showing some irritability. Staff reports she continued to be labile and irritable and focus on some delusions and anxious to be discharged. She is medication compliant and her behavior has been managed with when necessary medication for safety. Patient was reported awake and was seen. She displayed pressured speech, irritability, demanding medication changes and did not want to take Thorazine for fear shuffling. I had a long discussion was a patient regarding medication benefits and side effects I also indicated that we would be monitoring and evaluating any symptoms of extrapyramidal side effects. Review of Systems Psychiatric: Reports: depression, anxiety, abnormal sleep pattern, change in appetite, auditory hallucinations, visual hallucinations, difficulty concentrating, irritability, mood swings, panic attacks Results - Vital Signs Vital Signs: Temp Pulse Resp BP Pulse Ox 97.8 F 83 16 108/71 98 09/13/18 08:50 09/13/18 08:50 09/13/18 08:50 09/13/18 08:50 09/13/18 08:50 - Impressions ITS Impressions Hand X-Ray 09/11/18 15:28 IMPRESSION: 1. Small calcification adjacent to the proximal 5th metacarpal could represent an avulsion fracture fragment 2. Otherwise no acute bony or joint abnormality D/ / Adryan Georges MD / Adryan Georges MD Interpreting Provider: Adryan Georges MD Assessment and Plan (1) Bipolar affective, manic, severe w/ psych Current visit: Yes Status: Acute Plan: Continue hospitalization, Close observation, Suicide Precautions per unit protocol, Encourage participation in unit milieu, Group Therapy, Monitor sleep, Monitor appetite Risks, benefits, side effects, alternatives discussed w/pt: Yes Patient agreeable to treatment: Yes Consult Discharge Plan - Plan Additional Instructions: Patient received Invega Sustenna 156mg on 09/10/2018. Invega Sustenna 234mg dose on 09/16/2018. Next Invega Sustenna 234mg due on 10/14/2018. Referrals: [facility] [Other] (You are going into respite on discharge from the hospital. Your case as a client will be opened on arrival. You will meet with staff daily to identify and work towards goals. You will see Brianna Mccloud for medication assessment and management services on at 2:30 PM.) Frank Lou MD [Partnered Physician] - 09/16/18 1:20 pm Psychiatry Exam - Constitutional Vitals: Temp Pulse Resp BP Pulse Ox 97.8 F 83 16 108/71 98 09/13/18 08:50 09/13/18 08:50 09/13/18 08:50 09/13/18 08:50 09/13/18 08:50 General appearance: age & developmentally appropriate, well-groomed, well- nourished, average - Musculoskeletal Gait: normal Station: relaxed Strength & Tone: normal for patient - Psychiatric Patient Orientation: Yes Person, Yes Time, Yes Place Level of alertness: Alert Behavior: calm, cooperative, agitated, talkative Psychomotor activity: Increased Eye Contact: Minimal Contact Mood Description: Labile, Irritable Affect description: congruent with mood, labile Speech Volume: Loud Speech pattern: normal rate, normal rhythm, normal tone, fluent, spontaneous, excessive, pressured Language & Vocabulary: consistent with education Thought Process: Linear, Goal Oriented Thought Content: No Suicidal ideation, No Homicidal ideation, No Overt delusions , Yes Paranoid delusion, Yes Voodoo delusion, Yes Obsessive thoughts Perceptual Disturbances: No Auditory hallucinations, No Visual hallucinations Attention Span Ability: Capable of Focused Attention Memory Description: Grossly Intact Patient Reliability: Reliable Historian Fund of knowledge: Yes abstraction ability, Yes aware of current events Intelligence Estimate: Average Judgment: Limited Insight: Partial
[2018-09-13] MEDS: (Cariprazine Hcl [Vraylar] 3 MG) PO SCH (20:34)
[2018-09-13] MEDS: Ibuprofen 400 MG TABLET PO PRN (21:28)
[2018-09-13 21:46] LABS: Bilirubin,Urine Negative (Negative); Blood,Urine Negative (Negative); Clarity,Urine Clear (Clear); Color,Urine Yellow (Yellow); Glucose,Urine (UA) Normal (Normal); Ketones,Urine Negative (Negative); Leukocyte Esterase,Urine Small (Negative); Nitrite,Urine Negative (Negative); Protein,Urine Negative (Neg-Trace); Specific Gravity,Urine 1.008 (1.010-1.025); Urobilinogen,Urine Normal (Normal)
[2018-09-13 21:48] LABS: Bacteria,Urine None Seen per hpf (None-Few); Hyaline Casts,Urine None Seen per lpf (None-Few); Squamous Epithelial Cell,Urine Many per lpf (None-Few); WBC,Urine 0-3 per hpf (0-3)
[2018-09-14] MEDS: traMADol 50 MG TABLET PO PRN ×2 (03:06→14:58)
[2018-09-14] MEDS: hydrOXYzine pamoate 25 MG CAPSULE PO PRN ×2 (03:06→17:42)
[2018-09-14] MEDS: Nicotine 14 MG PATCH.TD24 TD SCH (08:03)
[2018-09-14] MEDS: Simethicone 80 MG TAB.CHEW PO SCH ×3 (08:04→20:07)
[2018-09-14] MEDS: clonazePAM 1 MG TABLET PO SCH ×3 (08:04→20:07)
[2018-09-14] MEDS: Gabapentin 400 MG CAPSULE PO SCH ×3 (08:04→20:07)
[2018-09-14] MEDS: OXcarbazepine 150 MG TABLET PO SCH ×2 (08:05→20:06)
[2018-09-14] MEDS: chlorproMAZINE 25 MG TABLET PO SCH ×2 (08:08→20:07)
--- NOTE | 2018-09-14 13:10 | Psychiatry Progress Note ---
Date of Encounter: 09/14/18 Time of Encounter: 12:00 Subjective Interval history: Patient seen for follow-up. Case discussed with nursing staff. Staff report patient refused to take Thorazine. Continued to be labile and disruptive but not agitated. She is more directable. Speech continued to be pressured and was flight of ideas. She denied any suicidal ideation or auditory hallucinations. Review of Systems Psychiatric: Reports: depression, anxiety, abnormal sleep pattern, change in appetite, auditory hallucinations, visual hallucinations, difficulty concentrating, irritability, mood swings, panic attacks Results - Vital Signs Vital Signs: Temp Pulse Resp BP Pulse Ox 98.0 F 76 16 124/78 99 09/14/18 08:39 09/14/18 08:39 09/14/18 08:39 09/14/18 08:39 09/14/18 08:39 - Labs Labs: Laboratory Results - last 24 hr 09/13/18 21:10 Urine Color Yellow Urine Clarity Clear Urine pH 7.0 Ur Specific [place] 1.008 L Urine Protein Negative Urine Glucose (UA) Normal Urine Ketones Negative Urine Blood Negative Urine Nitrite Negative Urine Bilirubin Negative Urine Urobilinogen Normal Ur Leukocyte Esterase Small H Urine Microscopic RBC 3-5 H Urine Microscopic WBC 0-3 Ur Squamous Epith Cells Many H Urine Bacteria None Seen Hyaline Casts None Seen - Impressions ITS Impressions Hand X-Ray 09/11/18 15:28 IMPRESSION: 1. Small calcification adjacent to the proximal 5th metacarpal could represent an avulsion fracture fragment 2. Otherwise no acute bony or joint abnormality D/ / Adryan Georges MD / Adryan Georges MD Interpreting Provider: Adryan Georges MD Assessment and Plan (1) Bipolar affective, manic, severe w/ psych Current visit: Yes Status: Acute Plan: Continue hospitalization, Close observation, Suicide Precautions per unit protocol, Encourage participation in unit milieu, Group Therapy, Monitor sleep, Monitor appetite Risks, benefits, side effects, alternatives discussed w/pt: Yes Patient agreeable to treatment: Yes Consult Discharge Plan - Plan Additional Instructions: Patient received Invega Sustenna 156mg on 09/10/2018. Invega Sustenna 234mg dose on 09/16/2018. Next Invega Sustenna 234mg due on 10/14/2018. Referrals: [facility] [Other] (You are going into respite on discharge from the hospital. Your case as a client will be opened on arrival. You will meet with staff daily to identify and work towards goals. You will see Brianna Mccloud for medication assessment and management services on at 2:30 PM.) Frank Luo MD [Partnered Physician] - 09/16/18 1:20 pm Psychiatry Exam - Constitutional Vitals: Temp Pulse Resp BP Pulse Ox 98.0 F 76 16 124/78 99 09/14/18 08:39 09/14/18 08:39 09/14/18 08:39 09/14/18 08:39 09/14/18 08:39 General appearance: age & developmentally appropriate, well-groomed, well- nourished - Musculoskeletal Gait: normal Station: relaxed Strength & Tone: normal for patient - Psychiatric Patient Orientation: Yes Person, Yes Time, Yes Place Level of alertness: Alert Behavior: calm, cooperative, impulsive, talkative, dramatic Psychomotor activity: Increased Eye Contact: Maintains Eye Contact Mood Description: Euthymic/stable Affect description: congruent with mood, full range, labile Speech Volume: Normal, Loud Speech pattern: normal rate, normal rhythm, normal tone, fluent, spontaneous, disorganized, excessive, pressured Language & Vocabulary: consistent with education Thought Process: Linear, Goal Oriented, Racing Thought Content: No Suicidal ideation, No Homicidal ideation, No Overt delusions Perceptual Disturbances: No Auditory hallucinations, No Visual hallucinations Attention Span Ability: Capable of Focused Attention Memory Description: Grossly Intact Patient Reliability: Reliable Historian Fund of knowledge: Yes abstraction ability, Yes aware of current events Intelligence Estimate: Average Judgment: Limited Insight: Partial
[2018-09-14] MEDS: (Cariprazine Hcl [Vraylar] 3 MG) PO SCH (22:23)
[2018-09-15] MEDS: Ibuprofen 400 MG TABLET PO PRN ×2 (06:10→18:33)
[2018-09-15] MEDS: hydrOXYzine pamoate 25 MG CAPSULE PO PRN ×2 (06:10→20:33)
[2018-09-15] MEDS: Nicotine 14 MG PATCH.TD24 TD SCH (08:39)
[2018-09-15] MEDS: chlorproMAZINE 25 MG TABLET PO SCH ×2 (08:40→20:30)
[2018-09-15] MEDS: OXcarbazepine 150 MG TABLET PO SCH ×2 (08:40→20:30)
[2018-09-15] MEDS: Simethicone 80 MG TAB.CHEW PO SCH ×3 (08:41→20:31)
[2018-09-15] MEDS: clonazePAM 1 MG TABLET PO SCH ×3 (08:41→20:31)
[2018-09-15] MEDS: Gabapentin 400 MG CAPSULE PO SCH ×3 (08:41→20:32)
[2018-09-15] MEDS: Paliperidone Palmitate [Invega Sustenna] 234 MG IM SCH (12:49)
--- NOTE | 2018-09-15 13:10 | Psychiatry Progress Note ---
Date of Encounter: 09/15/18 Time of Encounter: 13:07 Subjective Interval history: Patient seen for follow-up with nursing staff. Case was discussed was treatment team this morning. Staff report patient continued to show some labile affect pressure speech or flight of ideas but she is more directable and not agitated. She is medication compliant she denied feeling lethargic and accepting medication. She believes now that Thorazine is good for her. Staff is working on discharge planning. Review of Systems Psychiatric: Reports: depression, anxiety, abnormal sleep pattern, change in appetite, auditory hallucinations, visual hallucinations, difficulty concentrating, irritability, mood swings, panic attacks Results - Vital Signs Vital Signs: Temp Pulse Resp BP Pulse Ox 97.8 F 88 18 114/67 99 09/15/18 09:00 09/15/18 09:00 09/15/18 09:00 09/15/18 09:00 09/15/18 09:00 - Impressions ITS Impressions Hand X-Ray 09/11/18 15:28 IMPRESSION: 1. Small calcification adjacent to the proximal 5th metacarpal could represent an avulsion fracture fragment 2. Otherwise no acute bony or joint abnormality D/ / Adryan Georges MD / Adryan Georges MD Interpreting Provider: Adryan Georgse MD Assessment and Plan (1) Bipolar affective, manic, severe w/ psych Current visit: Yes Status: Acute Plan: Continue hospitalization, Close observation, Suicide Precautions per unit protocol, Encourage participation in unit milieu, Group Therapy, Monitor sleep, Monitor appetite Risks, benefits, side effects, alternatives discussed w/pt: Yes Patient agreeable to treatment: Yes Consult Discharge Plan - Plan Additional Instructions: Patient received Invega Sustenna 156mg on 09/10/2018. Invega Sustenna 234mg dose on 09/16/2018. Next Invega Sustenna 234mg due on 10/14/2018. Referrals: [facility] [Other] (You are going into respite on discharge from the hospital. Your case as a client will be opened on arrival. You will meet with staff daily to identify and work towards goals. You will see Brianna Mccloud for medication assessment and management services on at 2:30 PM.) Frank Lou MD [Partnered Physician] - 09/16/18 1:20 pm Psychiatry Exam - Constitutional Vitals: Temp Pulse Resp BP Pulse Ox 97.8 F 88 18 114/67 99 09/15/18 09:00 09/15/18 09:00 09/15/18 09:00 09/15/18 09:00 09/15/18 09:00 General appearance: age & developmentally appropriate, well-groomed, well- nourished, average - Musculoskeletal Gait: normal Station: relaxed Strength & Tone: normal for patient - Psychiatric Patient Orientation: Yes Person, Yes Time, Yes Place Level of alertness: Alert Behavior: calm, cooperative, distractible, impulsive, talkative Psychomotor activity: Increased Eye Contact: Fleeting Contact Mood Description: Euthymic/stable, Euphoric, Labile Affect description: congruent with mood, full range, labile, euphoric Speech Volume: Normal, Loud Speech pattern: normal rate, normal rhythm, normal tone, fluent, spontaneous Language & Vocabulary: consistent with education Thought Process: Linear, Goal Oriented, Racing Thought Content: No Suicidal ideation, No Homicidal ideation, No Overt delusions Perceptual Disturbances: No Auditory hallucinations, No Visual hallucinations Attention Span Ability: Capable of Focused Attention Memory Description: Grossly Intact Patient Reliability: Reliable Historian Fund of knowledge: Yes abstraction ability, Yes aware of current events Intelligence Estimate: Average Judgment: Limited Insight: Partial
[2018-09-15] MEDS: MOM Conc 10 ML UD.LIQ PO PRN (18:33)
[2018-09-15] MEDS: traMADol 50 MG TABLET PO PRN (20:32)
[2018-09-15] MEDS: (Cariprazine Hcl [Vraylar] 3 MG) PO SCH (20:35)
[2018-09-16] MEDS: Ibuprofen 400 MG TABLET PO PRN (03:59)
[2018-09-16] MEDS: clonazePAM 1 MG TABLET PO SCH (08:35)
[2018-09-16] MEDS: OXcarbazepine 150 MG TABLET PO SCH (08:36)
[2018-09-16] MEDS: chlorproMAZINE 25 MG TABLET PO SCH (08:36)
[2018-09-16] MEDS: Gabapentin 400 MG CAPSULE PO SCH (08:37)
[2018-09-16] MEDS: Simethicone 80 MG TAB.CHEW PO SCH (08:37)
[2018-09-16] MEDS: Nicotine 14 MG PATCH.TD24 TD SCH (08:38)
[2018-09-16] MEDS: Paliperidone Palmitate [Invega Sustenna] 234 MG IM SCH (08:41)
[2018-09-16 08:44] VITALS: BP 137/79
--- NOTE | 2018-09-16 09:25 | Discharge Summary ---
Date of Encounter: 09/16/18 Time of Encounter: : Diagnosis - Discharge Diagnosis (1) Bipolar affective, manic, severe w/ psych Status: Acute Medications - Discharge Medications Albuterol Sulfate [Ventolin Hfa] 2 puff IH Q4H PRN 08/24/18 [History] Invega Sustenna 156 mg IM Q5D 09/10/18 [History] Cariprazine HCl [Vraylar] 3 mg PO HS 09/11/18 [History] Paliperidone Palmitate [Invega Sustenna] 234 mg IM ONCE 09/15/18 [History] Gabapentin [Neurontin] 800 mg PO TID capsule 09/16/18 [Rx] OXcarbazepine [Trileptal] 900 mg PO BID tablet 09/16/18 [Rx] Paliperidone [Invega] 6 mg PO DAILY tab.er.24 09/16/18 [Rx] chlorproMAZINE [Thorazine] 50 mg IM TID PRN ampul 09/16/18 [Rx] chlorproMAZINE [Thorazine] 100 mg PO BID tablet 09/16/18 [Rx] 3 Allergy/AdvReac Type Severity Reaction Status Date / Time No Known Allergies Allergy Verified 08/24/18 00:24 Results Procedures and tests throughout hospitalization: Completed Lab Orders Category Date Time Status CMP [Comprehensive Metabolic Panel] Routine Lab 08/28/18 11:55 Completed Chem 13 [Comprehensive Metabolic Panel] Routine Lab 09/10/18 09:53 Completed Urinalysis reflex Microscopic [URIN] Routine Lab 09/13/18 21:10 Completed Completed Imaging Orders Category Date Time Status XR hand 3V RT [XR] Routine Exams 09/11/18 15:28 Completed Provider Date of admission: 08/24/18 15:50 Primary care physician: PCP NONE Consults: 08/25/18 12:46 Consult to Pastoral Services [CONS] Routine Comment: 08/28/18 08:03 Consult to Pastoral Services [CONS] Routine Comment: 09/10/18 08:44 Consult to Pastoral Services [CONS] Routine Comment: 09/12/18 12:41 Consult to Physician [CONS] Routine Consulting Provider: Jaya Gayle Reason for Consult: Pt punched wall during agitation and xray finds small calcification of the proximal 5th metacarpal that could represent an avulsion fracture fragment Time Notified: 12:54 Call Completed: Yes 09/15/18 15:25 Consult to Pastoral Services [CONS] Routine Comment: pt would like to speak to someone today Discharging clinician: Johann Rossi Psychiatry Exam - Constitutional Vitals: Temp Pulse Resp BP Pulse Ox 98.2 F 94 16 137/79 98 09/16/18 08:43 09/16/18 08:43 09/16/18 08:43 09/16/18 08:43 09/16/18 08:43 General appearance: age & developmentally appropriate, well-groomed, well- nourished - Musculoskeletal Gait: normal Station: relaxed Strength & Tone: normal for patient - Psychiatric Patient Orientation: Yes Person, Yes Time, Yes Place Level of alertness: Alert Behavior: calm, cooperative, talkative Psychomotor activity: Increased Eye Contact: Maintains Eye Contact Mood Description: Euthymic/stable, Euphoric, Labile Affect description: congruent with mood, full range, labile Speech Volume: Normal, Loud Speech pattern: normal rate, normal rhythm, normal tone, fluent, spontaneous Language & Vocabulary: consistent with education Thought Process: Linear, Goal Oriented, Tangential Thought Content: No Suicidal ideation, No Homicidal ideation, No Overt delusions Perceptual Disturbances: No Auditory hallucinations, No Visual hallucinations Attention Span Ability: Capable of Focused Attention Memory Description: Grossly Intact Patient Reliability: Reliable Historian Fund of knowledge: Yes abstraction ability, Yes aware of current events Intelligence Estimate: Average Judgment: Limited Insight: Partial Hospital Course Hospital course: Ms. Rosa is a 33 year old female admitted for evaluation treatment off manic episode bipolar disorder with psychosis and substance abuse. For details of admission please see H&P On the unit the patient was reported to show significant manic symptoms, pressured speech, grandiose delusions, paranoid delusions, poor sleep, easily agitated. Patient was tried on several medication and then responded to Thorazine and in [place] oral and injectable in addition to gabapentin and varylar. To control patient behavior and keep her safe she requirement when necessary medication oral and injectable. Patient responded to treatment she became less manic, reported improved sleep. She was more directable and less intrusive. She continued however to display labile affect, circumstantial speech and grandiose delusions. Discharge plans were completed by social media analyst to place the patient in respite, patient was aware of her discharge plans and agreeable. Prior to discharge patient was medically stable, her ADLs improved was good hygiene and grooming, she was more directable. She denied any hallucination she was not agitated or aggressive she was medication compliant. She is discharged in stable condition. - Time Spent with Patient Total time spent providing and/or coordinating discharge services: Greater than 30 minutes Assessment and Plan - Patient/Caregiver Discharge Instructions Activity: resume usual activities as tolerated Diet: regular diet Additional Instructions: Patient received Invega Sustenna 156mg on 09/10/2018. Invega Sustenna 234mg dose on 09/16/2018. Next Invega Sustenna 234mg due on 10/14/2018. - Follow up Plan Follow up with: [facility] [Other] (You are going into respite on discharge from the hospital. Your case as a client will be opened on arrival. You will meet with staff daily to identify and work towards goals. You will be scheduled for primary care follow-up after your arrival. You will also see Brianna Mccloud for medication assessment and management services on 2017 at 2:30 PM.) Functional capacity at discharge: independent ambulation Overall status at discharge: Stable Disposition: Home, Self-Care Quality - Multiple Antipsychotics Patient discharged on 2 or more antipsychotic medications: Yes (Failed monotherapy) - Justification Documentation of: History 3 failed trials of monotherapy Procedures - Procedures Procedures: Medication Management, Crisis Stabilization, Supportive Therapy, Group Therapy, Psychoeducational Therapy
== END 2018-09-16 11:20 | disposition home or self-care (01) | DRG 753 ==
LOC: EMEROOARM 00:02 → 1ANU 15:50 → SUATTDRO 15:50 → 1ANU 16:31
PROVIDERS: ADMIT Psychiatry & Neurology Psychiatry; ATTEND Psychiatry & Neurology Psychiatry